=== PATIENT | female | born 1975 | race Caucasian/White ===

== ENCOUNTER → 2017-08-04 12:15 | Outpatient (CLI) | payer BC, OTHER, MEDICAID, SELFPAY ==
[2017-08-07 17:49] LABS: Clotting factor VIII 46 % normal (50-180); Thromboplastin Time 30 sec (22-34); Von Willibrand Factor Antigen 65 % (50-217)
== END ==
PROVIDERS: PCP Family Medicine
DX: N92.1 Excessive and frequent menstruation with irregular cycle (principal)
CPT/HCPCS: 85240; 85245; 85246; 85730

== ENCOUNTER 2017-08-17 11:42 | Day surgery (SDC) | payer BC, OTHER, MEDICAID, SELFPAY ==
[2017-08-12 09:19] VITALS: BMI 27.6
[2017-08-17] VITALS (16 sets, daily range): BP systolic 91–134; BP diastolic 5–78; PULSE 62–89; RESP 10–20; TEMP 36.6–37; O2SAT 95–100; BMI 26.4
--- NOTE | 2017-08-17 | PATH_ITS ---
[facility] Accession Number: [id number] . 01 Material submitted: . UTERUS AND CERVIX . 02 Diagnosis: Uterus and Cervix, Hysterectomy: Cervix with no diagnostic abnormality; negative for neoplasm. Proliferative endometrium with no diagnostic abnormality; negative for atypical hyperplasia or malignancy. Myometrium with no diagnostic abnormality; Negative for neoplasm. MRV/08/21/2017 . 02 Electronically signed: . Hany Gifford MD, PhD, Pathologist NPI- [id number] . 01 Gross description: . Received in formalin, labeled 1) uterus / cervix, is a uterus (55 grams, 3.5 cm AP, 6.6 cm SI, 3.5 cm ML). The ovaries and fallopian tubes are absent. The cervix (2.5 cm AP, 4.0 cm ML) has a vaginal cuff (up to 2.2 cm in depth, transverse os, and patent endocervical canal) lined with multiple cystic cavities (0.1 cm-0.7 cm) containing clear colorless fluid and turbid gelatinous material. The endometrium (average thickness-0.1 cm) is pulido-joaquin, smooth and flat. The myometrium (thickness-1.8 cm) is joaquin-pulido with a lacy appearance. The serosa is pale joaquin, smooth and shiny. Section code: (A1) anterior cervix; (A2) posterior cervix; (A3, A4) anterior endomyometrium; (A5, A6) posterior endomyometrium. ([id number]) /MRV . 02 Pathologist provided ICD-10: N92.1, N81.4 . 02 CPT . 958629 Performed at: [address] [facility], [place], [place] [id number] MD Carrillo Dubois MD Phone: [phone] Performed at: 02 [facility] [address] [place] [id number] MD Nitesh Han MD Phone: [phone]
[2017-08-17] MEDS: APREPITANT 40 MG CAPSULE PO (12:45)
[2017-08-17] MEDS: LACTATED RINGERS 1,000 ML 42 ML IV ×2 (12:45→14:21)
[2017-08-17] MEDS: CEFOTETAN 2 GM/50 ML PIGGYBACK IV (13:10)
--- NOTE | 2017-08-17 13:37 | SUR.OPER ---
Lithotomy on padded OR bed, head on pillow, arms secured on padded arm boards at <90 degrees abduction. Legs secured in padded yellow fins stirrups.
[2017-08-17] MEDS: BUPIVACAINE 0.5% W/ EPI (PF) 30 ML VIAL INJ (13:51)
--- NOTE | 2017-08-17 14:29 | PM.GYNOP.1 ---
Operative Date/Time/Diagnoses - Date of procedure: 08/17/17 Time of procedure: 14:29 Pre-op diagnosis: Menometrorrhagia Uterine descensus third-degree Post-op diagnosis: same Procedure: Procedures Operation Date: 08/17/17 13:00 Actual Procedures Side Surgeon p Vaginal Hysterectomy Jesus Hudson MD Indications: Menometrorrhagia Uterine descensus Surgeon: Jesus Hudson Patternmaker Plaster: Kathie Ibarra Anesthesia Type: General Operative Notes Findings: Normal appearing uterus Tubes with Hulka clips Normal ovaries Closure Type: primary Specimen(s): uterus Estimated blood loss (mL): 50 Blood products transfused: none Procedure in detail: The patient was placed supine upon the operating table and anesthetized. She was then placed in the dorsal lithotomy position and examined under anesthesia. Under anesthesia she was felt to have a highly mobile uterus of normal size with no adnexal masses. The patient was then draped para in the usual fashion. A posterior weighted retractor was set in place and the anterior lip of the cervix grabbed with two tooth tenacula. There was a circumferential injection of 0.25% Marcaine and 1 to [id number] epinephrine 10 cc. Sharp knife incision was then made circumferentially. Bladder was then pushed in a cephalad direction using a moist sponge without difficulty. The peritoneum was identified and opened and a Roddy retractor set in place. Posterior peritoneum was then opened and a large posterior weighted retractor was set in place. The uterus sacral ligaments were bilaterally clamped incised and suture ligated. These pedicles were held. Cardinal ligaments were bilaterally clamped in size and suture ligated. 1. Chromic suture was used. Uterine vessels were bilaterally clamped incised and suture ligated. Tubo-ovarian round were then bilaterally clamped incised free tied and suture ligated these pedicles were held. Each tube had a Hulka clip in the ovaries appeared to be normal. There were no bleeding points from the broad ligaments. A pursestring suture of 1. Chromic suture was then used without difficulty to close the peritoneum. Angle sutures of 1. Chromic suture were then placed with good fixation of the uterus sacral ligaments to the vaginal cuff. Vaginal cuff was then closed with interrupted 1. Chromic suture without difficulty. The urine was clear at the end of procedure. The patient was taken to the recovery room in satisfactory condition Complications: none Post-operative Condition: stable Disposition: PACU Plan for aftercare: Transfer to floor
[2017-08-17] MEDS: HYDROMORPHONE 2 MG INJ 0.25 MG IV ×4 (14:36→15:15)
[2017-08-17] MEDS: OXYCODONE/ACETAMINOPHEN 5/325 TABLET 2 TAB PO ×2 (14:45→18:41)
--- NOTE | 2017-08-17 15:10 | SUR.PHASEI ---
PT C/O 12/23 PAIN, DILAUDID AND PERCOCET GIVEN, BARE HUGGER USED HEATING PAD TO ABDOMEN, CURTAINS PULLED TO DARKEN AREA. PT CRYING- ON AND OFF SUPPORT GIVEN, DOZING IN BETWEEN CARE,
[2017-08-17] MEDS: LORazepam 2 MG/ML SYRINGE IV (15:29)
--- NOTE | 2017-08-17 15:33 | SUR.PHASEI ---
PT STIL ON AND OFF CRYING, SPOKE WITH DR AZAR, LORAZEPAN 0.25MG GIVEN. PT BETTER, NO LONGER CRYING.
--- NOTE | 2017-08-17 16:30 | SUR.PHASEII ---
late entry: pt brought up to room 221, as pt entered room and saw family she started crying again. support given, pt left in stable condition.
--- NOTE | 2017-08-17 16:31 | SUR.PHASEI ---
see final note in phase 2 as written in wrong spot.
[2017-08-17] MEDS: HYDROMORPHONE 0.5 MG INJ 1 MG IV (17:00)
[2017-08-17] MEDS: ONDANSETRON 4 MG/2 ML INJ IV (17:00)
[2017-08-17] MEDS: LACTATED RINGERS 1,000 ML 100 ML IV (17:04)
[2017-08-17 17:45] LABS: Add Manual Diff / Slide Review NO; Basophils Percent Auto 0.2 % (0-2); Hemoglobin 13.1 g/dL (12.0-16.0); Lymphocytes Percent Auto 6.3 % (25-40); Mean Corpuscular HGB Conc 34.4 % (30-36); Mean Corpuscular Hemoglobin 29.7 PG (26-34); Mean Corpuscular Volume 86.4 fL (80-100); Monocytes Percent Auto 1.3 % (3-14); Neutrophils Absolute Auto 15100 /uL (3000-5900); Neutrophils Percent Auto 92.2 % (50-75); Platelet Count 279 X10^3/uL (150-400); Red Blood Cell Count 4.39 X10^6/uL (4.0-5.2); Red Cell Distribution Width 12.6 % (11.6-14.8); White Blood Cell Count 16.4 X10^3/uL (4.5-11.0)
--- NOTE | 2017-08-17 18:43 | PC.NURSE ---
PATIENT IS ABLE TO GET SOME SLEEP AND EAT AFTER A DOSE OF IVP DILAUDID,NOW TAKING PERCOCETS.
--- NOTE | 2017-08-17 21:35 | PC.NURSE ---
PAIN MANAGED MUCH BETTER WITH OPTIC FIBRE DRAWER, UP TO BATHROOM SEVERAL TIMES WITHOUT DIFFICULTY.ABLE TO EAT DINNER WITHOUT NAUSEA.
[2017-08-17] MEDS: DOCUSATE 250 MG CAPSULE PO (21:42)
[2017-08-17] MEDS: HYDROMORPHONE PCA 6 MG/30 ML PCA.VIAL IV (23:48)
[2017-08-18] MEDS: LACTATED RINGERS 1,000 ML 100 ML IV (01:52)
[2017-08-18 01:59] VITALS: BP 94/54; PULSE 62; RESP 17; TEMP 36.6; O2SAT 100
[2017-08-18] MEDS: HYDROMORPHONE PCA 6 MG/30 ML PCA.VIAL IV ×2 (05:36→08:07)
[2017-08-18 06:12] VITALS: BP 103/62; PULSE 61; RESP 17; TEMP 36.8; O2SAT 100
--- NOTE | 2017-08-18 06:58 | PC.NURSE ---
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 GARBAGE PERSON Dilaudid in place & pt enc to use. Total 4.2mg for shift total. Denies nausea. States is 7/10 constant waves of pressure. Slept on/off. IVF infusing well to left AC PIV. Aware of plan to switch to po pain meds today, Pt states is the past post op she has had Dilaudid PO, Percocet & [place]. Voiding qs, no vaginal discharge on brief or with void.
[2017-08-18] MEDS: HYDROMORPHONE 0.5 MG INJ 1 MG IV (07:50)
[2017-08-18] MEDS: OXYCODONE/ACETAMINOPHEN 5/325 TABLET 2 TAB PO (07:51)
[2017-08-18] MEDS: DOCUSATE 250 MG CAPSULE PO (08:07)
--- NOTE | 2017-08-18 08:34 | PM.DS.1 ---
History of Present Illness Date Patient Seen: 08/18/17 Time Patient Seen: 08:34 Chief complaint: *OPB* hysterectomy 11085 Narrative: Patient is a 41-year-old with menometrorrhagia who was admitted for vaginal hysterectomy. On the 17 of August the patient underwent vaginal hysterectomy without incident.. Post delivery she did well. She remained afebrile stable vital signs and was progressively L amended ambulated. Discharge Providers Primary care physician: Kathie Ibarra DO Discharge provider: Jesus Hudson MD Summary Discharge Diagnosis: Menometrorrhagia Uterine descensus Hospital Course: Patient underwent vaginal hysterectomy without incident. Postoperatively she did well. She remained afebrile with stable vital signs and was progressively L amended and ambulated Status at Discharge Functional status at discharge: independent ambulation Time Spent with Patient Less than 30 minutes Exam Vital Signs (past 8 hours): Vital Signs - 8 hr 08/18/17 01:59 08/18/17 06:12 Temperature 97.9 F 98.3 F Pulse Rate 62 61 Respiratory Rate 17 17 Blood Pressure 94/54 L 103/62 Pulse Oximetry 100 100 Pulse Oximetry 100 Oxygen Delivery Method Room Air Narrative Exam Narrative: Abdomen is soft and nontender. There is minimal vaginal bleeding. Objective Labs Result Diagrams: 08/17/17 17:17 Labs: Laboratory Results - last 24 hr 08/17/17 17:17 WBC 16.4 H RBC 4.39 Hgb 13.1 Hct 38.0 MCV 86.4 MCH 29.7 MCHC 34.4 RDW 12.6 Plt Count 279 Neut % (Auto) 92.2 H Lymph % (Auto) 6.3 L [place] % (Auto) 1.3 L Eos % (Auto) 0.0 L Baso % (Auto) 0.2 Neut # (Auto) 61475 H Discharge Plan Discharge Plan Patient Disposition: Home, Self-Care Discharge Med Rec/Prescriptions Prescriptions: New oxycodone-acetaminophen [Percocet] 5-325 mg tablet 2 tab PO Q4-6H PRN (Reason: pain) Qty: 30 RF: 0 hydromorphone [Dilaudid] 2 mg tablet 2 mg PO Q4-6H PRN (Reason: pain) Qty: 10 RF: 0 Continue triamcinolone acetonide 0.5 % ointment 1 dave Topical BID Qty: 15 RF: 0 dextroamphetamine-amphetamine 5 mg capsule,extended release 24hr 5 mg PO QAM Qty: 30 RF: 0 Discontinued hydrocodone-acetaminophen 5-325 mg Tablet 1 tab PO Q4-6H PRN (Reason: Pain (Scale Score 1-3)) RF: 0 Follow up/Referrals: Jesus Hudson MD [Physician] - Discharge Orders: Discharge (Order); Ordered 08/18/17 Ordered By: Jesus Hudson Provider Discharge Instructions Diet: Diet as Tolerated Wound Care Report to your healthcare provider any signs of infection, such as:: chills, fever, night sweats, increased pain and unusual drainage Visit Report/Discharge Packet Stand Alone Forms: Surgery Discharge Discharge Data Primary Care Provider: Kathie Ibarra Attending Provider: Jesus Hudson Quality VTE Deep Vein Thrombosis/Pulmonary Embolism Present on Admission: No
--- NOTE | 2017-08-18 08:37 | P.DS_ITS ---
History of Present Illness Date Patient Seen: 08/18/17 Time Patient Seen: 08:34 Chief complaint: *OPB* hysterectomy [id number] Narrative: Patient is a 41-year-old with menometrorrhagia who was admitted for vaginal hysterectomy. On the 17 of August the patient underwent vaginal hysterectomy without incident.. Post delivery she did well. She remained afebrile stable vital signs and was progressively L amended ambulated. Discharge Providers Primary care physician: Kathie Ibarra DO Discharge provider: Jesus Hudson MD Summary Discharge Diagnosis: Menometrorrhagia Uterine descensus Hospital Course: Patient underwent vaginal hysterectomy without incident. Postoperatively she did well. She remained afebrile with stable vital signs and was progressively L amended and ambulated Status at Discharge Functional status at discharge: independent ambulation Time Spent with Patient Less than 30 minutes Exam Vital Signs (past 8 hours): Vital Signs - 8 hr 3 08/18/17 01:59 08/18/17 06:12 Temperature 97.9 F 98.3 F Pulse Rate 62 61 Respiratory Rate 17 17 Blood Pressure 94/54 L 103/62 Pulse Oximetry 100 100 Pulse Oximetry 100 Oxygen Delivery Method Room Air Narrative Exam Narrative: Abdomen is soft and nontender. There is minimal vaginal bleeding. Objective Labs Result Diagrams: 08/17/17 17:17 Labs: Laboratory Results - last 24 hr 08/17/17 17:17 WBC 16.4 H RBC 4.39 Hgb 13.1 Hct 38.0 MCV 86.4 MCH 29.7 MCHC 34.4 RDW 12.6 Plt Count 279 Neut % (Auto) 92.2 H Lymph % (Auto) 6.3 L [place] % (Auto) 1.3 L Eos % (Auto) 0.0 L Baso % (Auto) 0.2 Neut # (Auto) 86559 H Discharge Plan Discharge Plan Patient Disposition: Home, Self-Care Discharge Med Rec/Prescriptions Prescriptions: New oxycodone-acetaminophen [Percocet] 5-325 mg tablet 2 tab PO Q4-6H PRN (Reason: pain) Qty: 30 RF: 0 hydromorphone [Dilaudid] 2 mg tablet 2 mg PO Q4-6H PRN (Reason: pain) Qty: 10 RF: 0 Continue triamcinolone acetonide 0.5 % ointment 1 dave Topical BID Qty: 15 RF: 0 dextroamphetamine-amphetamine 5 mg capsule,extended release 24hr 5 mg PO QAM Qty: 30 RF: 0 Discontinued hydrocodone-acetaminophen 5-325 mg Tablet 1 tab PO Q4-6H PRN (Reason: Pain (Scale Score 1-3)) RF: 0 Follow up/Referrals: Jesus Hudson MD [Physician] - Discharge Orders: Discharge (Order); Ordered 08/18/17 Ordered By: Jesus Hudson Provider Discharge Instructions Diet: Diet as Tolerated Wound Care Report to your healthcare provider any signs of infection, such as:: chills, fever, night sweats, increased pain and unusual drainage Visit Report/Discharge Packet Stand Alone Forms: Surgery Discharge Discharge Data Primary Care Provider: Kathie Ibarra Attending Provider: Jesus Hudson Quality VTE Deep Vein Thrombosis/Pulmonary Embolism Present on Admission: No
[2017-08-18 09:45] VITALS: BP 102/58; PULSE 59; RESP 16; TEMP 36.7; O2SAT 100
--- NOTE | 2017-08-18 10:47 | CM.DANOTE ---
DCP/Assessment: Reviewed chart. Patient is a 41yr old female admitted to [facility] with bed for vaginal hysterectomy. PCP is Dr. Ibarra. Surgeon is Dr. Hudson. Primary payor is 1)[facility] 2) Medicaid. Met with patient explained CM/SW role. Patient alert and oriented at time of visit. Patient complaining of pain. RN notified. Patient reports that she plans to d/c home today. Patient resides with supportive family in [place]. Patient denies any d/c planning needs. P: Home today. XENIA Muniz
--- NOTE | 2017-08-18 11:33 | PC.NURSE ---
MANAGER RENEWABLE ENERGY VIAL COMPLETE AT START OF SHIFT, PT REQUESTS TO SWITCH TO ORAL ANALGESICS. C/O 8/10 PAIN. THIS APPLIED RESEARCHER MEDICATED PER EMAR WITH IV DILAUDID AND PO PERCOCET. AMBULATING IN ROOM INDEPENDENTLY. DR. GARCIA IN FOR ROUNDING. D/C TO HOME ORDERED. IV REMOVED. PT C/OF PAIN AT 1100. TOO EARLY FOR PO ANALGESICS. MOTHER HAS TAKEN SCRIPTS TO PHARMACY TO FILL AWAITING RETURN. MSG LEFT WITH DR. RADHA SALAZAR EFRA FOR VTO FOR EARLY ADMINISTRATION OF PERCOCET OR PO DILAUDID PT HAS NOT IV ACCESS AT THIS TIME. MOTHER ARRIVED FROM PHARMACY WITH PO DILAUDID AND PO PERCOCET. PT TOOK 2 MG PO DILAUDID WITNESSED BY THIS APPLIED RESEARCHER. PT AMBULATED OUT OF HOSPITAL ESCORTED WITH THIS APPLIED RESEARCHER AT [facility] AT APPROX 1120. PT LEFT IN STABLE CONDITION WITH ALL PERSONAL BELONGINGS.
== END 2017-08-18 11:20 | disposition home or self-care (01) ==
LOC: OR 11:43 → AC 16:14
PROVIDERS: PCP Family Medicine
PROC: (CPT 58260; principal; 2017-08-17 13:00)
DX: N92.1 Excessive and frequent menstruation with irregular cycle (principal); F17.210 Nicotine dependence, cigarettes, uncomplicated; N81.4 Uterovaginal prolapse, unspecified
CPT/HCPCS: 58260; 85025; 88305; J0131; J0330; J1100; J1170; J2060; J2250; J2405; J2704; J8501

== ENCOUNTER → 2018-09-29 11:18 | Outpatient (CLI) | payer BC, OTHER, MEDICAID, SELFPAY ==
[2018-09-09 13:26] VITALS: BMI 26.4
--- NOTE | 2018-09-29 11:21 | DI.RAD.S_ITS ---
PROCEDURE: XR KNEE LT 3V INDICATIONS: left knee pain TECHNIQUE: 3 views of the knee were acquired. COMPARISON: [facility], , KNEE 3V RIGHT, 09/23/2016, 11:56. FINDINGS: Bones: No fractures or dislocations. No suspicious bony lesions. No patella subluxation is seen. Soft tissues: Small to moderate amount of joint effusion is seen. No suspicious soft tissue calcifications. IMPRESSION: No left knee fracture or dislocation. Small to moderate amount of joint effusion. Dictated by: Tevin Javier M.D. on 09/29/2018 at 13:08 Approved by: Tevin Javier M.D. on 09/29/2018 at 13:08
== END ==
PROVIDERS: PCP Family Medicine; Visit Provider Family Medicine
DX: M25.562 Pain in left knee (principal); M25.462 Effusion, left knee
CPT/HCPCS: 73562

== ENCOUNTER → 2018-12-22 12:17 | Outpatient (CLI) | payer BC, OTHER, MEDICAID, SELFPAY ==
[2018-09-09 13:26] VITALS: BMI 26.4
[2018-12-22 16:48] LABS: Luteinizing Hormone 8.72 mIU/mL
== END ==
PROVIDERS: Family Provider Family Medicine; PCP Family Medicine; Visit Provider Nurse Practitioner Family
DX: R23.2 Flushing (principal)
CPT/HCPCS: 36415; 83001; 83002

== ENCOUNTER 2019-02-02 11:27 | Emergency (ER) | payer BC, OTHER, MEDICAID, SELFPAY ==
[2018-09-09 13:26] VITALS: BMI 26.4
[2019-02-02 11:33] VITALS: BP 145/88; PULSE 97; RESP 16; TEMP 36.8; O2SAT 99; BMI 28.9
--- NOTE | 2019-02-02 11:33 | DI.RAD.S_ITS ---
PROCEDURE: XR WRIST RT MIN 3V INDICATIONS: pain TECHNIQUE: 3 views of the wrist were acquired. COMPARISON: None. FINDINGS: Bones: No displaced fractures or dislocations. No suspicious bony lesions. Soft tissues: No suspicious soft tissue calcifications. IMPRESSION: No acute osseous abnormality of the right wrist. Dictated by: Enrico Reagan M.D. on 02/02/2019 at 10:55 Approved by: Enrico Reagan M.D. on 02/02/2019 at 10:56
--- NOTE | 2019-02-02 11:38 | ED_ITS ---
HPI - GI Bleed General Chief complaint: Extremity Injury, Upper Stated complaint: Hurt Right Wrist Time Seen by Provider: 02/02/19 11:33 Source: patient Mode of arrival: Ambulatory Limitations: no limitations History of Present Illness HPI Narrative: 43-year-old female here for evaluation of right wrist pain. She states that yesterday she was taking clothes out of a washing machine when she had a sudden pain in the right wrist. She does not remember hitting it on anything. She did not fall. She did feel a ?snap? this happened last evening. Her right elbow is unremarkable. Her right hand is unremarkable. The swelling is improved since last evening however she does have pain with movement. Related Data Previous Rx's Medication Instructions Recorded ketoconazole 2 % topical cream 1 applictn TOP BID #30 gram 12/24/18 dextroamphetamine-amphetamine 10 10 mg PO DAILY #30 tab 02/01/19 mg tablet dextroamphetamine-amphetamine ER 20 mg PO DAILY #30 cap 02/01/19 20 mg 24hr capsule,extend release escitalopram oxalate 20 mg tablet 30 mg PO DAILY #45 tab 02/01/19 Allergies Allergy/AdvReac Type Severity Reaction Status Date / Time bee venom protein (honey bee) Allergy Severe Difficulty Verified 02/02/19 11:33 Breathing, edema Penicillins [PENICILLINS] Allergy Severe Vomiting Verified 02/02/19 11:33 and rash ketorolac [From TORADOL] Allergy Intermediate ABDOMINAL Verified 02/02/19 11:33 PAIN doxycycline AdvReac Severe Abdominal Verified 02/02/19 11:33 Pain Review of Systems Constitutional Constitutional: Denies fever(s) Musculoskeletal Musculoskeletal: Denies tingling Comments: Right wrist pain Integumentary/Breasts Skin/Breast: Denies rash Neurologic Neurologic: Denies tingling Hematologic/Lymphatic Hematologic/Lymphatic: Denies easy bleeding and Denies easy bruising Patient History Medical History Cervical dystonia (Chronic) Chronic left shoulder pain (Chronic 12/05/15) History of heavy periods (Chronic) Kidney stone (Chronic ~2013) Menorrhagia (Chronic) Painful menstrual flow (Chronic) Tobacco use (Chronic 06/16/16) Trigeminal neuralgia (Chronic) UTI (urinary tract infection) (Chronic ~2013) Family History (Reviewed 02/02/19 @ 11:39 by RASHEL Cramer Father Age: 68 Colon cancer Mother Fibromyalgia History of bladder surgery Grandmother Bladder cancer Social History marital status: number of children: 1 household members: family, children and other education level: high school occupational status: employed Smoking Status: Current every day smoker alcohol intake: current substance use type: does not use Substance Use Type: does not use Exam Initial Vital Signs Initial Vital Signs: Vital Signs Temperature 98.2 F 02/02/19 11:33 Pulse Rate 97 H 02/02/19 11:33 Respiratory Rate 16 02/02/19 11:33 Blood Pressure 145/88 H 02/02/19 11:33 Pulse Oximetry 99 02/02/19 11:33 Const General: cooperative and comfortable Cardio Pulses: radial pulses present on the right Skin Lesions: no lesions Rashes: no rashes Neuro Sensory Exam: no sensory deficits noted Extrem Other: Right elbow unremarkable, right hand unremarkable, right thumb unremarkable, no snuffbox tenderness, has tenderness to palpation throughout the right wrist. Procedures Orthopedic Splinting/Casting Injury #1: Side: right Upper Extremity Injury Location: wrist Upper Extremity Immobilizer: wrist splint Post splinting neuro exam: intact Post splinting vascular exam: intact Placed by: Nursing Course Orders Ordered: ED Orders 02/02/19 11:33 XR wrist RT min 3V Stat Vital Signs Vital signs: Vital Signs - 8 hr 02/02/19 11:33 02/02/19 11:51 Temperature 98.2 F Pulse Rate 97 H Pulse Rate [Right Radial] 90 Respiratory Rate 16 Blood Pressure 145/88 H Pulse Oximetry 99 MDM - GI Bleed Imaging Data Xray wrist: Radiologist's impression: [address] [address] XRay Report Signed Patient: Aggie Cartwright LMR#: [id number] : 1975Acct:[id number] Age/Sex: 43 / FDate of Service: 02/02/19 Loc: ED Accession Number: [id number] Procedure: XR wrist RT min 3V Ordering Provider: Washington Hyde D.O. PROCEDURE: XR WRIST RT MIN 3V INDICATIONS: pain TECHNIQUE: 3 views of the wrist were acquired. COMPARISON: None. FINDINGS: Bones: No displaced fractures or dislocations. No suspicious bony lesions. Soft tissues: No suspicious soft tissue calcifications. IMPRESSION: No acute osseous abnormality of the right wrist. Dictated by: Enrico Reagan M.D. on 02/02/2019 at 10:55 Approved by: Enrico Reagan M.D. on 02/02/2019 at 10:56 [facility] Narrative Medical decision making narrative: No fractures on the x-ray, is neurovascularly intact, will placed in a removable right wrist splint. We did discuss rice. Discussed return precautions. She expressed understanding and agreement with plan Discharge Plan Departure Patient Disposition: Home Clinical Impression: Sprain of wrist, right Qualifiers: Encounter type: initial encounter Qualified Code(s): S63.501A - Unspecified sprain of right wrist, initial encounter Instructions: DI for Wrist Sprain, How To Perform RICE (Rest, Ice, Compress, Elevate) Activity Restrictions/Additional Instructions: Use the wrist splint as needed. Contact your primary provider for a follow-up. Return to the emergency department for any new symptoms Prescriptions: No Action dextroamphetamine-amphetamine [Adderall] 10 mg tablet 10 mg PO DAILY Qty: 30 RF: 0 escitalopram oxalate [Lexapro] 20 mg tablet 30 mg PO DAILY Qty: 45 RF: 2 dextroamphetamine-amphetamine [Adderall XR] 20 mg capsule,extended release 24hr 20 mg PO DAILY Qty: 30 RF: 0 ketoconazole 2 % cream 1 applictn TOP BID Qty: 30 RF: 0 Referrals: Kathie Ibarra DO [Primary Care Provider] -
[2019-02-02 11:51] VITALS: PULSE 90
== END 2019-02-02 12:15 | disposition home or self-care (01) ==
PROVIDERS: Emergency Provider Emergency Medicine; Family Provider Family Medicine; PCP Family Medicine
DX: S63.501A Unspecified sprain of right wrist, initial encounter (principal); Y93.E2 Activity, laundry
CPT/HCPCS: 29260; 73110; 99282; 99283

== ENCOUNTER 2019-05-22 07:57 | Emergency (ER) | payer BC, OTHER, MEDICAID, SELFPAY ==
[2018-09-09 13:26] VITALS: BMI 26.4
[2019-05-22 08:11] VITALS: BP 131/70; PULSE 104; RESP 18; TEMP 37.2; O2SAT 100
--- NOTE | 2019-05-22 08:33 | ED_ITS ---
HPI - URI/Sore Throat General Chief Complaint: Upper Respiratory Symptoms Stated Complaint: vomiting/ cough/ sore throat, fever Time Seen by Provider: 05/22/19 08:19 Source: patient Mode of arrival: Ambulatory Limitations: no limitations History of Present Illness HPI Narrative: 43-year-old woman without significant medical history with 3 days of upper respiratory symptoms consisting of runny nose, scratchy throat, low- grade fevers, nonproductive dry cough and today had 3 episodes of emesis. She believes it is related to the persistent postnasal drip that she has. Her daughter had similar symptoms last week. She is not complaining of dyspnea, chest pain, edema, rashes Related Data Previous Rx's Medication Instructions Recorded ketoconazole 2 % topical cream 1 applictn TOP BID #30 gram 12/24/18 dextroamphetamine-amphetamine 10 10 mg PO DAILY #10 tab 04/22/19 mg tablet dextroamphetamine-amphetamine ER 20 mg PO DAILY #30 cap 04/22/19 20 mg 24hr capsule,extend release bupropion HCl 300 mg 24 hr tablet, 300 mg PO QAM #30 tab 05/17/19 extended release ondansetron 4 mg PO Q8H PRN #10 each 05/22/19 Allergies Allergy/AdvReac Type Severity Reaction Status Date / Time bee venom protein (honey bee) Allergy Severe Difficulty Verified 02/02/19 11:33 Breathing, edema Penicillins [PENICILLINS] Allergy Severe Vomiting Verified 02/02/19 11:33 and rash ketorolac [From TORADOL] Allergy Intermediate ABDOMINAL Verified 02/02/19 11:33 PAIN doxycycline AdvReac Severe Abdominal Verified 02/02/19 11:33 Pain Review of Systems Review of Systems Narrative: All systems reviewed and are unremarkable except as noted in HPI and below Patient History Medical History Cervical dystonia (Chronic) Chronic left shoulder pain (Chronic 12/05/15) History of heavy periods (Chronic) Kidney stone (Chronic ~2013) Menorrhagia (Chronic) Painful menstrual flow (Chronic) Tobacco use (Chronic 06/16/16) Trigeminal neuralgia (Chronic) UTI (urinary tract infection) (Chronic ~2013) Surgical History Anesthesia (Inactive) History of endometrial ablation (Resolved ~2015) History of lithotripsy (Resolved) History of lumpectomy (Resolved ~1991) S/P nasal surgery (Resolved) Status post tubal ligation (Resolved ~2015) Family History Father Age: 68 Colon cancer Mother Fibromyalgia History of bladder surgery Grandmother Bladder cancer Social History marital status: number of children: 1 household members: family, children and other education level: high school occupational status: employed Smoking Status: Current every day smoker alcohol intake: current substance use type: does not use Smoking Status: Current every day smoker Substance Use Type: does not use Exam Narrative Exam Narrative: General: Healthy appearing, in no acute distress. Able to give a complete and coherent history. Well-nourished well-developed HEENT: Moist mucous membranes, normal sclera with reactive pupils, mildly retracted tympanic membranes bilaterally, mild posterior pharyngeal erythema without exudate Neck: No JVD, supple, no cervical adenopathy Respiratory: Lungs are clear to auscultation, with minor scattered wheezing in upper lung moore wheezing no rales no rhonchi. Full and symmetrical air movement Cardiac: Regular rate and rhythm no murmurs no bruits Abdomen: Soft nontender good bowel tones, no flank pain Skin: Warm and dry, no rashes Neurologic: Grossly neurologically intact with no obvious asymmetries or abnormalities Extremities: No trauma, well perfused Psych: Cooperative, appropriate insight and affect Initial Vital Signs Initial Vital Signs: Vital Signs Temperature 98.9 F 05/22/19 08:11 Pulse Rate 104 H 05/22/19 08:11 Respiratory Rate 18 05/22/19 08:11 Blood Pressure 131/70 05/22/19 08:11 Pulse Oximetry 100 05/22/19 08:11 Course Orders Ordered: Discontinued Medications Ondansetron HCl (Zofran Odt) 4 mg SL NOW ONE Stop: 05/22/19 08:34 Vital Signs Vital signs: Vital Signs - 8 hr 05/22/19 08:11 Temperature 98.9 F Pulse Rate 104 H Respiratory Rate 18 Blood Pressure 131/70 Pulse Oximetry 100 [facility] - URI/Sore Throat Medical Records Attestation: I reviewed the patient's medical records. MDM Narrative Medical decision making narrative: Symptoms all consistent with mild viral upper respiratory infection no signs of sepsis or impending respiratory failure. Symptomatic treatment. Discharge Plan Departure Patient Disposition: Home Clinical Impression: Viral infection Instructions: DI for Viral Syndrome Activity Restrictions/Additional Instructions: Thank you for coming in today You have a viral syndrome and are going to get better over the next couple of days. I have given you a prescription for Zofran to help with nausea. It was electronically sent to [facility] for you. While at the drugstore I would suggest picking up some Sudafed to help with the nasal stuffiness as well as Robitussin DM to help with your cough. Ibuprofen can help with the aches and pains. Please make sure that you stay well hydrated, wash her hands and disinfected surfaces in your house will to prevent spreading this to the your family members. If you find that you are getting worse with increased work of breathing, feeling like you are short of breath, fevers that are not controlled persist it is perfectly okay to return to the emergency room and I am happy to re-evaluate Prescriptions: New ondansetron 4 mg film 4 mg PO Q8H PRN (Reason: nausea and vomiting) Qty: 10 RF: 0 No Action dextroamphetamine-amphetamine [Adderall XR] 20 mg capsule,extended release 24hr 20 mg PO DAILY Qty: 30 RF: 0 dextroamphetamine-amphetamine [Adderall] 10 mg tablet 10 mg PO DAILY Qty: 10 RF: 0 ketoconazole 2 % cream 1 applictn TOP BID Qty: 30 RF: 0 bupropion HCl [Wellbutrin XL] 300 mg tablet extended release 24 hr 300 mg PO QAM Qty: 30 RF: 3 Referrals: Kathie Ibarra DO [Primary Care Provider] -
[2019-05-22] MEDS: ONDANSETRON 4 MG ODT SL (08:49)
== END 2019-05-22 09:17 | disposition home or self-care (01) ==
PROVIDERS: Emergency Provider Emergency Medicine; Family Provider Family Medicine; PCP Family Medicine
DX: B34.9 Viral infection, unspecified (principal); R05 Cough; R11.10 Vomiting, unspecified
CPT/HCPCS: 99283

== ENCOUNTER → 2019-05-24 12:27 | Outpatient (CLI) | payer BC, OTHER, MEDICAID, SELFPAY ==
[2018-09-09 13:26] VITALS: BMI 26.4
[2019-05-24 13:21] LABS: Influenza A - CEPHEID Flu A NEGATIVE (NEGATIVE); Influenza B - CEPHEID Flu B NEGATIVE (NEGATIVE)
== END ==
PROVIDERS: Family Provider Family Medicine; PCP Family Medicine; Visit Provider Family Medicine
DX: B34.9 Viral infection, unspecified (principal)
CPT/HCPCS: 87502

== ENCOUNTER → 2019-05-30 09:46 | Outpatient (CLI) | payer BC, OTHER, MEDICAID, SELFPAY ==
[2018-09-09 13:26] VITALS: BMI 26.4
[2019-05-30 13:07] LABS: Adenovirus Not Detected (Not Detect); Bordetella pertussis Not Detected (Not Detect); Chlamydophila pneumoniae Not Detected (Not Detect); Coronavirus 229E Not Detected (Not Detect); Coronavirus HKU1 Not Detected (Not Detect); Coronavirus NL 63 Not Detected (Not Detect); Coronavirus OC43 Not Detected (Not Detect); Human Metapneumovirus Not Detected (Not Detect); Human Rhinovirus/Enterovirus Detected (Not Detect); Influenza A Not Detected (Not Detect); Influenza B Not Detected (Not Detect); Mycoplasma pneumoniae Not Detected (Not Detect); Parainfluenza Virus 1 Not Detected (Not Detect); Parainfluenza Virus 2 Not Detected (Not Detect); Parainfluenza Virus 3 Not Detected (Not Detect); Parainfluenza Virus 4 Not Detected (Not Detect); Respiratory Syncytial Virus Not Detected (Not Detect)
[2019-06-03 22:28] LABS: COVID19 Sendout Not Detected (Not Detected)
== END ==
PROVIDERS: Family Provider Family Medicine; PCP Family Medicine; Visit Provider Family Medicine
DX: R05 Cough (principal)
CPT/HCPCS: 87633; 87635

== ENCOUNTER → 2019-06-09 12:01 | Outpatient (CLI) | payer BC, OTHER, MEDICAID, SELFPAY ==
[2018-09-09 13:26] VITALS: BMI 26.4
--- NOTE | 2019-06-09 12:03 | DI.RAD.S_ITS ---
PROCEDURE: XR CHEST 2V INDICATIONS: cough, fever TECHNIQUE: 2 views of the chest were acquired. COMPARISON: None. FINDINGS: Surgical changes and devices: None. Lungs and pleura: Lungs are clear. No pleural effusions or pneumothorax. Mediastinum: Mediastinal contours are normal. Heart size is normal. Bones and chest wall: No suspicious bony abnormalities. Soft tissues appear unremarkable. IMPRESSION: No acute cardiopulmonary disease. Dictated by: Nikole Parkinson M.D. on 06/09/2019 at 13:16 Approved by: Nikole Parkinson M.D. on 06/09/2019 at 13:17
== END ==
PROVIDERS: Family Provider Family Medicine; PCP Family Medicine; Referring Provider Family Medicine; Visit Provider Family Medicine
DX: R05 Cough (principal); R50.9 Fever, unspecified
CPT/HCPCS: 71046

== ENCOUNTER 2019-08-26 23:14 | Emergency (ER) | payer BC, SELFPAY ==
[2018-09-09 13:26] VITALS: BMI 26.4
[2019-08-26 23:22] VITALS: BP 139/80; PULSE 108; RESP 18; TEMP 37.4; O2SAT 98; BMI 27.4
[2019-08-26] MEDS: LIDOCAINE 2% W/EPI INJ 3 ML INJ (23:48)
[2019-08-27] MEDS: OXYCODONE/APAP 5/325 PREPACK 1 BOTTLE MISC (00:03)
[2019-08-27] MEDS: IBUPROFEN 400 MG TABLET PO (00:03)
[2019-08-27] MEDS: OXYCODONE/ACETAMINOPHEN 5/325 TABLET 1 TAB PO (00:03)
--- NOTE | 2019-08-27 00:14 | ED_ITS ---
HPI - Dental/Oral General Chief complaint: Dental/Oral Stated complaint: toothache/severe pain Time Seen by Provider: 08/26/19 23:25 Source: patient Mode of arrival: Family Vehicle History of Present Illness HPI Narrative: 43-year-old woman presents with severe right-sided dental pain. She felt something changed in her mouth does not describe some popping cracking or significant trauma and then experienced severe right-sided pain. It is worse with talking or moving her mouth and anything touching the tooth including air. She is unable to eat or drink because of the pain. Location: Tooth # (30) Onset (ago): hour(s) Duration: constant Severity: severe Severity scale (1-10): >10 Relieving factors: nothing Exacerbating factors: chewing, cold, heat, drinking fluids and swallowing Related Data Previous Rx's Medication Instructions Recorded ketoconazole 2 % topical cream 1 applictn TOP BID #30 gram 12/24/18 bupropion HCl 300 mg 24 hr tablet, 300 mg PO QAM #30 tab 05/17/19 extended release benzonatate 200 mg capsule 200 mg PO TID PRN #30 cap 05/23/19 albuterol sulfate 90 mcg/actuation 2 puff INHALATION Q6H PRN #6.7 gram 05/24/19 aerosol inhaler ondansetron 4 mg disintegrating 4 mg PO Q8H PRN #20 tab 05/30/19 tablet dextroamphetamine-amphetamine 10 10 mg PO DAILY #30 tab 08/23/19 mg tablet dextroamphetamine-amphetamine ER 20 mg PO DAILY #30 cap 08/23/19 20 mg 24hr capsule,extend release oxycodone-acetaminophen 1 tab PO Q6H PRN #10 tab 08/27/19 Allergies Allergy/AdvReac Type Severity Reaction Status Date / Time bee venom protein (honey bee) Allergy Severe Difficulty Verified 02/02/19 11:33 Breathing, edema Penicillins [PENICILLINS] Allergy Severe Vomiting Verified 02/02/19 11:33 and rash ketorolac [From TORADOL] Allergy Intermediate ABDOMINAL Verified 02/02/19 11:33 PAIN doxycycline AdvReac Severe Abdominal Verified 02/02/19 11:33 Pain Review of Systems Review of Systems Narrative: Pertinent positive and negative findings as per HPI Remainder of review of systems is otherwise unremarkable for Constitutional: Fevers, chills, weakness ENT: No sore throat, neck pain, ear pain CV: Chest pain, palpitations, dyspnea on exertion Respiratory: Cough, wheeze, dyspnea GI: Nausea, vomiting, diarrhea, change in bowel habits, black or bloody stools Patient History Medical History Cervical dystonia (Chronic) Chronic left shoulder pain (Chronic 12/05/15) History of heavy periods (Chronic) Kidney stone (Chronic ~2013) Menorrhagia (Chronic) Painful menstrual flow (Chronic) Tobacco use (Chronic 06/16/16) Trigeminal neuralgia (Chronic) UTI (urinary tract infection) (Chronic ~2013) Surgical History Anesthesia (Inactive) History of endometrial ablation (Resolved ~2015) History of lithotripsy (Resolved) History of lumpectomy (Resolved ~1991) S/P nasal surgery (Resolved) Status post tubal ligation (Resolved ~2015) Family History Father Age: 68 Colon cancer Mother Fibromyalgia History of bladder surgery Grandmother Bladder cancer Social History marital status: number of children: 1 household members: family, children and other education level: high school occupational status: employed Smoking Status: Current every day smoker alcohol intake: current substance use type: does not use Smoking Status: Current every day smoker Substance Use Type: does not use Exam Narrative Exam Narrative: General: Alert appropriate in no acute distress EENT: Multiple dental caries. Tooth 20. 9 is extracted. Tooth number 30 with half the crown missing and exposed dental nerve. No abscess or severe periodontal disease Respiratory: Able to speak in full sentences, no obvious respiratory distress Skin: No obvious rashes, warm and dry Neurologic: Grossly intact no obvious asymmetries or abnormalities Psych, appropriate insight and affect, cooperative Initial Vital Signs Initial Vital Signs: Vital Signs Temperature 99.3 F 08/26/19 23:22 Pulse Rate 108 H 08/26/19 23:22 Respiratory Rate 18 08/26/19 23:22 Blood Pressure 139/80 08/26/19 23:22 Pulse Oximetry 98 08/26/19 23:22 Course Orders Ordered: Discontinued Medications Ibuprofen (Advil) 400 mg PO NOW ONE Stop: 08/26/19 23:53 Last Admin: 08/27/19 00:03 Dose: 400 mg Documented by: MANUEL Lidocaine HCl (Xylocaine 2%) 20 ml INJ INTRA-OP ONE Stop: 08/26/19 23:39 Last Admin: 08/26/19 23:48 Dose: Not Given Documented by: NIESHA Lidocaine/Epinephrine (Xylocaine 2% W/Epi) 3 ml INJ INTRA-OP ONE Stop: 08/26/19 23:47 Last Admin: 08/26/19 23:48 Dose: 3 ml Documented by: NIESHA Oxycodone/Acetaminophen (Percocet 5/325) 1 tab PO NOW ONE Stop: 08/26/19 23:53 Last Admin: 08/27/19 00:03 Dose: 1 tab Documented by: MANUEL Oxycodone/Acetaminophen (Endocet 5/325 Prepack) 1 bottle MISC SEEINSTR ONE Stop: 08/26/19 23:58 Last Admin: 08/27/19 00:03 Dose: 1 bottle Documented by: MANUEL Vital Signs Vital signs: Vital Signs - 8 hr 08/26/19 23:22 Temperature 99.3 F Pulse Rate 108 H Respiratory Rate 18 Blood Pressure 139/80 Pulse Oximetry 98 MDM - Dental/Oral Medical Records Attestation: I reviewed the patient's medical records. [facility] Narrative Medical decision making narrative: Exposed tooth root number 30. Severe pain. Dental paste was applied to cover the exposed root. Dental periosteal nerve block with 3 cc of 2% lidocaine was used for pain control. Patient is a improved and safe for home discharge Discharge Plan Departure Patient Disposition: Home Clinical Impression: Fracture of tooth Qualifiers: Encounter type: initial encounter Fracture type: closed Qualified Code(s): S02.5XXA - Fracture of tooth (traumatic), initial encounter for closed fracture Instructions: DI for Dental Pain Activity Restrictions/Additional Instructions: Thank you for coming in today It looks like you broke you 1st molar on the bottom right side. The root is exposed and that is the source of your severe pain. I have tried to cover this, but you will need to be very gentle with it to keep it in place. Tomorrow, you need to go to the drug store and look for DENTAL WAX. You can use this to at least cover the nerve root so the pain is not quite so severe. Using 400 mg of ibuprofen (2 [id number] pills) and 1 Tylenol every 6 hours can be very helpful in controlling pain. For severe pain rather than Tylenol you can use 1 Percocet with the 400 mg of ibuprofen. A prescription for Percocet has been electronically transmitted to [facility] for you You will need to get in to see a dentist for definitive care. I wish you well Prescriptions: New oxycodone-acetaminophen 5-325 mg tablet 1 tab PO Q6H PRN (Reason: pain) Qty: 10 RF: 0 No Action ondansetron 4 mg tablet,disintegrating 4 mg PO Q8H PRN (Reason: nausea and vomiting) Qty: 20 RF: 0 albuterol sulfate 90 mcg/actuation HFA aerosol inhaler 2 puff INHALATION Q6H PRN (Reason: shortness of breath or wheezing) Qty: 6.7 RF: 0 ketoconazole 2 % cream 1 applictn TOP BID Qty: 30 RF: 0 bupropion HCl [Wellbutrin XL] 300 mg tablet extended release 24 hr 300 mg PO QAM Qty: 30 RF: 3 benzonatate 200 mg capsule 200 mg PO TID PRN (Reason: cough) Qty: 30 RF: 0 dextroamphetamine-amphetamine [Adderall] 10 mg tablet 10 mg PO DAILY Qty: 30 RF: 0 dextroamphetamine-amphetamine [Adderall XR] 20 mg capsule,extended release 24hr 20 mg PO DAILY Qty: 30 RF: 0 Referrals: Kathie Ibarra DO [Primary Care Provider] -
[2019-08-27 00:34] VITALS: BP 128/78; PULSE 90; RESP 16; O2SAT 97
== END 2019-08-27 00:34 | disposition home or self-care (01) ==
PROVIDERS: Emergency Provider Emergency Medicine; Family Provider Family Medicine; PCP Family Medicine
DX: S02.5XXA Fracture of tooth (traumatic), initial encounter for closed fracture (principal)
CPT/HCPCS: 99283

== ENCOUNTER → 2019-10-13 11:45 | Outpatient (CLI) | payer BC, OTHER, SELFPAY ==
[2018-09-09 13:26] VITALS: BMI 26.4
[2019-10-13 13:28] LABS: Add Manual Diff / Slide Review NO; Basophils Absolute Auto 100 /uL (0-100); Basophils Percent Auto 0.8 % (0-2); Eosinophils Absolute Auto 200 /uL (0-450); Eosinophils Percent Auto 1.9 % (2-4); Hematocrit 41.4 % (36-46); Hemoglobin 14.2 g/dL (12.0-16.0); Lymphocytes Absolute Auto 3100 /uL (1100-4500); Lymphocytes Percent Auto 37.5 % (25-40); Mean Corpuscular HGB Conc 34.2 % (30-36); Mean Corpuscular Hemoglobin 29.7 PG (26-34); Mean Corpuscular Volume 86.7 fL (80-100); Monocytes Absolute Auto 500 /uL (0-900); Monocytes Percent Auto 5.6 % (3-14); Neutrophils Absolute Auto 4400 /uL (1500-7000); Neutrophils Percent Auto 54.2 % (50-75); Platelet Count 351 X10^3/uL (150-400); Red Blood Cell Count 4.77 X10^6/uL (4.0-5.2); Red Cell Distribution Width 12.8 % (11.6-14.8); White Blood Cell Count 8.2 X10^3/uL (4.5-11.0)
[2019-10-13 13:56] LABS: Alanine Aminotransferase 13 IU/L (<35); Albumin 4.4 g/dL (3.5-5.0); Alkaline Phosphatase 77 U/L (38-126); Aspartate Aminotransferase 20 IU/L (14-36); BUN Creatinine Ratio 8.9 (6-22); Bilirubin Total 0.4 mg/dL (0.2-1.3); Blood Urea Nitrogen 5 mg/dL (7-17); Calcium 9.1 mg/dL (8.4-10.2); Carbon Dioxide 28 mmol/L (22-32); Chloride 102 mmol/L (98-107); Estimated Glomerular Filt Rate > 60.0 mL/min (>60); Globulin 2.2 g/dL (1.7-4.1); Glucose 113 mg/dL (70-100); HEMOLYSIS < 15 (0-50); Potassium 4.4 mmol/L (3.4-5.1); Sodium 138 mmol/L (137-145); Total Protein 6.6 g/dL (6.3-8.2)
[2019-10-13 14:23] LABS: TSH w/ Reflex to FT4 1.78 uIU/mL (0.47-4.68)
== END ==
PROVIDERS: Family Provider Family Medicine; PCP Family Medicine; Referring Provider Family Medicine; Visit Provider Family Medicine
DX: R61 Generalized hyperhidrosis (principal)
CPT/HCPCS: 36415; 80053; 84443; 85025

== ENCOUNTER 2019-11-08 12:22 | Emergency (ER) | payer BC, OTHER, SELFPAY ==
[2018-09-09 13:26] VITALS: BMI 26.4
[2019-11-08 12:29] VITALS: BP 146/74; PULSE 92; RESP 16; TEMP 37; O2SAT 98; BMI 28.2
--- NOTE | 2019-11-08 12:31 | DI.RAD.S_ITS ---
PROCEDURE: XR SHOULDER RT MIN 2V INDICATIONS: shoulder injury TECHNIQUE: 2 views of the shoulder were acquired. COMPARISON: [facility], CR, XR CHEST 2V, 06/09/2019, 11:57. FINDINGS: Bones: No fractures or dislocations. No suspicious bony lesions. Visualized ribs appear intact. Soft tissues: Calcific tendinopathy is seen. The visualized lung demonstrates an unremarkable appearance. IMPRESSION: Calcific tendinopathy is seen, without an acute plain film abnormality seen. If it would be helpful for clinical management decision making, please consider a dedicated, scheduled shoulder MRI for further evaluation (assuming that there is no contraindication). If there is strong clinical concern for a labral abnormality, this should be performed according to the arthrogram protocol. Dictated by: Zion Gonzalez M.D. on 11/08/2019 at 12:02 Approved by: Zion Gonzalez M.D. on 11/08/2019 at 12:03
[2019-11-08] MEDS: CYCLOBENZAPRINE 10 MG TABLET PO (16:00)
[2019-11-08] MEDS: LIDOCAINE PATCH 1 EACH ADH..PATCH TOP (16:00)
[2019-11-08 16:09] VITALS: BP 138/78; PULSE 88; RESP 16; O2SAT 97
--- NOTE | 2019-11-08 17:07 | ED_ITS ---
HPI - Extremity Injury (Upper) <Ana Luisa Nathan, MEDICARE COMPLIANCE AUDITOR-BC - Last Filed: 11/08/19 18:57> General Chief Complaint: Extremity Injury, Upper Stated Complaint: RIGHT SHOULDER PAIN INJURY Time Seen by Provider: 11/08/19 15:07 Source: patient Mode of arrival: Ambulatory Limitations: no limitations History of Present Illness HPI narrative: The patient is a 44-year-old female current smoker with remote history of right shoulder pain who presents with a chief complaint of right shoulder pain. She was practicing [employer] a few days ago, has had a pain in her right shoulder when she had a punching bag. She took 2 ibuprofen for this today, but states that she cannot tolerate doses of NSAIDs as they make her vomit and she has severe stomach pain. She states that she has remote history of a partial tear of the rotator cuff on that side, without happened several years ago. She denies any other injury, states that she has full range of motion of her right wrist, hand and elbow. Related Data Previous Rx's Medication Instructions Recorded ketoconazole 2 % topical cream 1 applictn TOP BID #30 gram 12/24/18 albuterol sulfate 90 mcg/actuation 2 puff INHALATION Q6H PRN #6.7 gram 05/24/19 aerosol inhaler ondansetron 4 mg disintegrating 4 mg PO Q8H PRN #20 tab 10/14/19 tablet epinephrine 0.3 mg/0.3 mL 0.3 mg IM Q5-15M PRN #2 each 10/20/19 injection, auto-injector dextroamphetamine-amphetamine ER 30 mg PO DAILY #30 cap 11/03/19 30 mg 24hr capsule,extend release cyclobenzaprine 10 mg PO TID PRN #20 tab 11/08/19 lidocaine 1 patch TOP DAILY PRN #15 each 11/08/19 prednisone 40 mg PO DAILY 5 Days #10 tab 11/08/19 Allergies Allergy/AdvReac Type Severity Reaction Status Date / Time bee venom protein (honey bee) Allergy Severe Difficulty Verified 11/08/19 12:29 Breathing, edema Penicillins [PENICILLINS] Allergy Severe Vomiting Verified 11/08/19 12:29 and rash ketorolac [From TORADOL] Allergy Intermediate ABDOMINAL Verified 11/08/19 12:29 PAIN doxycycline AdvReac Severe Abdominal Verified 11/08/19 12:29 Pain Review of Systems <SIA Hernandez - Last Filed: 11/08/19 18:57> Review of Systems Narrative: GENERAL: Denies chills, fatigue, malaise, fever, sweats. HEENT: Denies sinus pain, ear pain, sore throat, difficulty swallowing, dizziness. RESPIRATORY: Denies dyspnea, cough, wheezing, hemoptysis, sputum. CARDIOVASCULAR: Denies chest pain, palpitations, orthopnea, edema, GASTROINTESTINAL: Denies nausea, vomiting, abdominal pain, diarrhea, constipation, melena. : Denies dysuria, frequency, incontinence, hematuria, urinary retention. MUSCULOSKELETAL: See HPI SKIN: Denies rash, skin lesions, or other NEUROLOGIC: Denies weakness, headache, numbness, change in speech, confusion, seizures, incoordination. PSYCHIATRIC: No concerning psychosocial issues. 12 point review of systems is negative except for those stated above Patient History <SIA Hernandez - Last Filed: 11/08/19 18:57> Medical History Cervical dystonia (Chronic) Chronic left shoulder pain (Chronic 12/05/15) History of heavy periods (Chronic) Kidney stone (Chronic ~2013) Menopausal symptom (Acute) Menorrhagia (Chronic) Painful menstrual flow (Chronic) Tobacco use (Chronic 06/16/16) Trigeminal neuralgia (Chronic) UTI (urinary tract infection) (Chronic ~2013) Surgical History Anesthesia (Inactive) History of endometrial ablation (Resolved ~2015) History of lithotripsy (Resolved) History of lumpectomy (Resolved ~1991) S/P nasal surgery (Resolved) Status post tubal ligation (Resolved ~2015) Family History Father Age: 68 Colon cancer Mother Fibromyalgia History of bladder surgery Grandmother Bladder cancer Social History marital status: number of children: 1 household members: family, children and other education level: high school occupational status: employed Smoking Status: Current every day smoker alcohol intake: current substance use type: does not use Smoking Status: Current every day smoker alcohol intake frequency: holidays/special occasions only Substance Use Type: does not use Exam <SIA Hernandez - Last Filed: 11/08/19 18:57> Narrative Exam Narrative: GENERAL: This is a well-nourished, well-developed patient, appears uncomfortable HEAD: Atraumatic. Normocephalic. No temporal or scalp tenderness. EYES: Pupils equal round and reactive. Extraocular motions intact. No scleral icterus. No injection or drainage. ENT: Nose without bleeding, purulent drainage or septal hematoma. Wearing a mask Airway patent. NECK: Trachea midline. No JVD or lymphadenopathy. Supple, nontender, no meningeal signs. CARDIOVASCULAR: Regular rate and rhythm RESPIRATORY: No cough. No increased respiratory effort. No accessory muscle use. EXTREMITIES: Pain to palpation generalized right shoulder, decreased range of motion all moore, negative in hand test. Positive right radial pulse. Able to make a fist, flex and extend right hand right wrist, no pain to snuffbox palpation right wrist. Able to fully flex and extend right elbow. No pain to palpation right elbow. BACK: Nontender without deformity or crepitance. No flank tenderness. NEURO: AOx3. SKIN: No rash or erythema on visible skin Initial Vital Signs Initial Vital Signs: Vital Signs Temperature 98.6 F 11/08/19 12:29 Pulse Rate 92 H 11/08/19 12:29 Respiratory Rate 16 11/08/19 12:29 Blood Pressure 146/74 H 11/08/19 12:29 Pulse Oximetry 98 11/08/19 12:29 <Melissa Dixon MD - Last Filed: 11/08/19 18:58> Initial Vital Signs Initial Vital Signs: Vital Signs Temperature 98.6 F 11/08/19 12:29 Pulse Rate 92 H 11/08/19 12:29 Respiratory Rate 16 11/08/19 12:29 Blood Pressure 146/74 H 11/08/19 12:29 Pulse Oximetry 98 11/08/19 12:29 Scores <SIA Hernandez - Last Filed: 11/08/19 18:57> GCS [place] coma scale eye opening: Spontaneous [place] coma scale verbal response: Orientated [place] coma scale motor response: Obey commands [place] coma scale total score: 15 Course <SIA Hernandez - Last Filed: 11/08/19 18:57> Orders Ordered: ED Orders 11/08/19 12:31 XR shoulder RT min 2V Stat Discontinued Medications Cyclobenzaprine HCl (Flexeril) 10 mg PO NOW ONE Stop: 11/08/19 15:31 Last Admin: 11/08/19 16:00 Dose: 10 mg Documented by: MANUEL Lidocaine (Lidoderm) 1 each TOP NOW ONE Stop: 11/08/19 15:31 Last Admin: 11/08/19 16:00 Dose: 1 each Documented by: MANUEL Vital Signs Vital signs: Vital Signs - 8 hr 11/08/19 12:29 11/08/19 16:09 Temperature 98.6 F Pulse Rate 92 H 88 Respiratory Rate 16 16 Blood Pressure 146/74 H 138/78 Pulse Oximetry 98 97 <Melissa Dixon MD - Last Filed: 11/08/19 18:58> Orders Ordered: ED Orders 11/08/19 12:31 XR shoulder RT min 2V Stat Discontinued Medications Cyclobenzaprine HCl (Flexeril) 10 mg PO NOW ONE Stop: 11/08/19 15:31 Last Admin: 11/08/19 16:00 Dose: 10 mg Documented by: MANUEL Lidocaine (Lidoderm) 1 each TOP NOW ONE Stop: 11/08/19 15:31 Last Admin: 11/08/19 16:00 Dose: 1 each Documented by: MANUEL Vital Signs Vital signs: Vital Signs - 8 hr 11/08/19 12:29 11/08/19 16:09 Temperature 98.6 F Pulse Rate 92 H 88 Respiratory Rate 16 16 Blood Pressure 146/74 H 138/78 Pulse Oximetry 98 97 MDM - Extremity Injury (Upper) <SIA Hernandez - Last Filed: 11/08/19 18:57> Imaging Data Extremity x-ray #1: Radiologist's Impression: [address] [place] [id number] XRay Report Signed Patient: Aggie Cartwright LMR#: [id number] : 1975Acct:[id number] Age/Sex: 44 / FDate of Service: 11/08/19 Loc: ED Accession Number: [id number] Procedure: XR shoulder RT min 2V Ordering Provider: Melissa Dixon MD PROCEDURE: XR SHOULDER RT MIN 2V INDICATIONS: shoulder injury TECHNIQUE: 2 views of the shoulder were acquired. COMPARISON: [facility], CR, XR CHEST 2V, 06/09/2019, 11:57. FINDINGS: Bones: No fractures or dislocations. No suspicious bony lesions. Visualized ribs appear intact. Soft tissues: Calcific tendinopathy is seen. The visualized lung demonstrates an unremarkable appearance. IMPRESSION: Calcific tendinopathy is seen, without an acute plain film abnormality seen. If it would be helpful for clinical management decision making, please consider a dedicated, scheduled shoulder MRI for further evaluation (assuming that there is no contraindication). If there is strong clinical concern for a labral abnormality, this should be performed according to the arthrogram protocol. Dictated by: Zion Gonzalez M.D. on 11/08/2019 at 12:02 Approved by: Zion Gonzalez M.D. on 11/08/2019 at 12:03 [facility] Narrative Medical decision making narrative: The patient is a 44-year-old female who presents with a chief complaint of right shoulder pain after hitting a punching bag several days ago. She has a negative x-ray for any acute fracture, though sounded to have some calcific tendinitis. I discussed the use of NSAIDs for this, the patient cannot tolerate them. Thus we elected use prednisone instead. Also left upper trial muscle relaxers and lidocaine patch. She does have decreased range of motion, 9 courage to follow-up with her PCP in the next few days. She may need further imaging and/or physical therapy. Patient did request a sling, I discussed that that increases her chance of frozen shoulder syndrome so elected to hold off on that at this point time. Discussed come back to the ER for any acute concerns. Patient has no questions or concerns upon discharge and states understanding of return precautions as well as follow-up care. Discharge Plan Departure Patient Disposition: Home Clinical Impression: Acute pain of right shoulder, Calcific tendonitis of right shoulder Discharge Date/Time: 11/08/19 16:09 Instructions: DI for Shoulder Tendinopathy, How To Perform RICE (Rest, Ice, Compress, Elevate), DI for Shoulder Pain Activity Restrictions/Additional Instructions: Thank you for trusting us with your care today. As I discussed, your x-ray shows no acute fractures, does show the possibility of calcific tendinitis. For this I have placed you on muscle relaxers and steroids. Please follow-up with primary care provider in the next few days. As discussed, you may need physical therapy and/or further imaging. Please come back to emergency department for any acute concerns Prescriptions: New cyclobenzaprine 10 mg tablet 10 mg PO TID PRN (Reason: muscle spasm) Qty: 20 RF: 0 lidocaine 5 % adhesive patch,medicated 1 patch TOP DAILY PRN (Reason: pain) Qty: 15 RF: 0 prednisone 20 mg tablet 40 mg PO DAILY 5 Days Qty: 10 RF: 0 No Action albuterol sulfate 90 mcg/actuation HFA aerosol inhaler 2 puff INHALATION Q6H PRN (Reason: shortness of breath or wheezing) Qty: 6.7 RF: 0 dextroamphetamine-amphetamine 30 mg capsule,extended release 24hr 30 mg PO DAILY Qty: 30 RF: 0 ketoconazole 2 % cream 1 applictn TOP BID Qty: 30 RF: 0 ondansetron 4 mg tablet,disintegrating 4 mg PO Q8H PRN (Reason: nausea and vomiting) Qty: 20 RF: 2 epinephrine [EpiPen 2-Jason] 0.3 mg/0.3 mL auto-injector 0.3 mg IM Q5-15M PRN (Reason: anaphylaxis) Qty: 2 RF: 0 Referrals: Kathie Ibarra DO [Primary Care Provider] - <Melissa Dixon MD - Last Filed: 11/08/19 18:58> [facility] I was immediately available in the department for consultation throughout this patient's visit. I agree with documentation as above. Melissa Dixon MD
== END 2019-11-08 16:09 | disposition home or self-care (01) ==
PROVIDERS: Emergency Provider Nurse Practitioner Family; Family Provider Family Medicine; PCP Family Medicine
DX: M75.31 Calcific tendinitis of right shoulder (principal)
CPT/HCPCS: 73030; 99283

== ENCOUNTER → 2019-11-24 15:43 | Outpatient (CLI) | payer BC, OTHER, SELFPAY ==
[2018-09-09 13:26] VITALS: BMI 26.4
[2019-11-25 14:10] LABS: Specimen Label MYRIAD KIT
== END ==
PROVIDERS: Family Provider Family Medicine; PCP Family Medicine; Referring Provider Obstetrics & Gynecology; Visit Provider Obstetrics & Gynecology
DX: Z80.3 Family history of malignant neoplasm of breast (principal); Z80.41 Family history of malignant neoplasm of ovary; Z80.42 Family history of malignant neoplasm of prostate
CPT/HCPCS: 36415

== ENCOUNTER → 2019-12-16 10:13 | Outpatient (CLI) | payer BC, OTHER, MEDICAID, SELFPAY ==
[2018-09-09 13:26] VITALS: BMI 26.4
== END ==
PROVIDERS: Family Provider Family Medicine; PCP Family Medicine; Referring Provider Obstetrics & Gynecology; Visit Provider Obstetrics & Gynecology
DX: R11.15 Cyclical vomiting syndrome unrelated to migraine (principal)
CPT/HCPCS: 36415; 83001

== ENCOUNTER → 2020-02-02 10:56 | Outpatient (CLI) | payer BC, OTHER, MEDICAID, SELFPAY ==
[2018-09-09 13:26] VITALS: BMI 26.4
[2020-02-02 18:37] LABS: Urine Chlamydia NOT DETECTED; Urine N gonorrhoeae NOT DETECTED
== END ==
PROVIDERS: Family Provider Family Medicine; PCP Family Medicine; Referring Provider Family Medicine; Visit Provider Family Medicine
DX: N89.8 Other specified noninflammatory disorders of vagina (principal)
CPT/HCPCS: 87491; 87591

== ENCOUNTER 2020-10-09 09:28 | Emergency (ER) | payer BC, OTHER, MEDICAID, SELFPAY ==
[2018-09-09 13:26] VITALS: BMI 26.4
[2020-10-09 09:42] VITALS: BP 121/76; PULSE 86; RESP 13; TEMP 36.8; O2SAT 98; BMI 27.4
--- NOTE | 2020-10-09 09:58 | ED.URI ---
HPI - URI/Sore Throat General Chief Complaint: Upper Respiratory Symptoms Stated Complaint: WHITE SPOTS ON THROAT/CONGESTION/FEVER Time Seen by Provider: 10/09/20 09:33 Source: patient Mode of arrival: Ambulatory Limitations: no limitations History of Present Illness HPI Narrative: 45-year-old female smoker presents with a chief complaint of various upper respiratory symptoms including runny nose, sore throat, trouble swallowing, cough and diarrhea for the past 3 4 days. She has had a fever as high as 100.1 F. She is able to eat and drink. She denies any difficulty breathing. She traveled a few weeks ago to [place] but does not think she has been exposed to anybody with known COVID. Related Data Previous Rx's Medication Instructions Recorded ketoconazole 2 % topical cream 1 applictn TOP BID #30 gram 12/24/18 albuterol sulfate 90 mcg/actuation 2 puff INHALATION Q6H PRN #6.7 gram 05/24/19 aerosol inhaler epinephrine 0.3 mg/0.3 mL 0.3 mg IM Q5-15M PRN #2 each 10/20/19 injection, auto-injector (EpiPen 2-Jason) cyclobenzaprine 10 mg tablet 10 mg PO TID PRN #20 tab 11/08/19 lidocaine 5 % topical patch 1 patch TOP DAILY PRN #15 each 11/08/19 ondansetron 4 mg disintegrating 4 mg PO Q8H PRN #20 tab 04/16/20 tablet alprazolam 0.25 mg tablet 0.25 mg PO DAILY PRN #7 tab 09/03/20 dextroamphetamine-amphetamine ER 30 mg PO DAILY #30 cap 09/11/20 30 mg 24hr capsule,extend release Allergies Allergy/AdvReac Type Severity Reaction Status Date / Time bee venom protein (honey bee) Allergy Severe Difficulty Verified 10/09/20 09:52 Breathing, edema Penicillins [PENICILLINS] Allergy Severe Vomiting Verified 10/09/20 09:52 and rash ketorolac [From TORADOL] Allergy Intermediate ABDOMINAL Verified 10/09/20 09:52 PAIN doxycycline AdvReac Severe Abdominal Verified 10/09/20 09:52 Pain Review of Systems Review of Systems Narrative: GENERAL: Denies chills, fatigue, malaise, fever, sweats. HEENT: See HPI RESPIRATORY: See HPI CARDIOVASCULAR: Denies chest pain, palpitations, orthopnea, edema, GASTROINTESTINAL: Denies nausea, vomiting, abdominal pain, diarrhea, constipation, melena. : Denies dysuria, frequency, incontinence, hematuria, urinary retention. MUSCULOSKELETAL: denies weakness, joint pain, or bony pain SKIN: Denies rash, skin lesions, or other NEUROLOGIC: Denies weakness, headache, numbness, change in speech, confusion, seizures, incoordination. PSYCHIATRIC: No concerning psychosocial issues. 12 point review of systems is negative except for those stated above Patient History Medical History (Updated 10/09/20 @ 10:40 by Fede Jorge DO) Cervical dystonia Chronic left shoulder pain (12/05/15) History of heavy periods Kidney stone (~2013) Menopausal symptom Menorrhagia Painful menstrual flow Tobacco use (06/16/16) Trigeminal neuralgia UTI (urinary tract infection) (~2013) Surgical History Anesthesia History of endometrial ablation (~2015) History of lithotripsy History of lumpectomy (~1991) S/P nasal surgery Status post tubal ligation (~2015) Family History Father Age: 69 Colon cancer Mother Fibromyalgia History of bladder surgery Grandmother Bladder cancer Social History marital status: number of children: 1 household members: family, children and other education level: high school occupational status: employed Smoking Status: Current every day smoker alcohol intake: current substance use type: does not use Smoking Status: Current every day smoker alcohol intake frequency: holidays/special occasions only Substance Use Type: does not use Exam Narrative Exam Narrative: GEN: AOx3 and in mild distress EYES: Pupils are equal, round, and reactive to light and accommodation. Extraoccular muscles are intact bilaterally. There is no subconjunctival hemorrhage or exudate. ENT: Clear nasal drainage bilaterally with clear posterior pharyngeal drainage, no tonsillar swelling, erythema or exudate. Bilateral tympanic membranes are clear, without effusion, redness or bulging CHEST: Lungs are clear to auscultation bilaterally and free of wheezes, rales, or rhonchi. Heart rate is regular rhythm, there are no murmurs, clicks, rubs, or gallops. There is no chest wall tenderness. ABD: Abdomen is soft and nontender. There is no guarding or rebound. Bowel sounds are normal in all 4 quadrants. There is no mass or organomegaly. EXT: Full painless ROM of all extremities with no loss of sensation or strength. SKIN: Warm, pink, and dry. No erythema or rash Initial Vital Signs Initial Vital Signs: Vital Signs Temperature 98.3 F 10/09/20 09:42 Pulse Rate 86 10/09/20 09:42 Respiratory Rate 13 10/09/20 09:42 Blood Pressure 121/76 10/09/20 09:42 Pulse Oximetry 98 10/09/20 09:42 Course Orders Ordered: ED Orders 10/09/20 10:19 COVID19 -Nasal swab/Pre-Proc Stat Vital Signs Vital signs: Vital Signs - 8 hr 10/09/20 09:42 Temperature 98.3 F Pulse Rate 86 Respiratory Rate 13 Blood Pressure 121/76 Pulse Oximetry 98 MDM - URI/Sore Throat Lab Data Labs: Lab Results 10/09/20 Range/Units 10:19 SARS-CoV-2 (PCR) Negative (Negative) Point of Care Testing Rapid Strep A Negative MDM Narrative Medical decision making narrative: Patient is resting comfortably in shows no sign of sepsis. She is tolerating oral hydration. She is in no respiratory distress. Strep is negative, COVID is negative. There is no indication for significant lab workup or imaging. This history and physical is most consistent with a viral upper respiratory infection. Return precautions given and questions answered to her apparent satisfaction Discharge Plan Departure Patient Disposition: Home Clinical Impression: Upper respiratory virus Instructions: DI for Viral Upper Respiratory Infection -- Adult Activity Restrictions/Additional Instructions: *You have been diagnosed with [viral upper respiratory infection. Swab for strep was negative, COVID swab was negative] *What to do: *Please continue to take your regular medications as directed. * please consider [id number] cough and cold medications that include an antihistamine to dry the secretions. *Please follow up with your primary care provider in 2-3 days, call for an appointment. Let them know you were seen in the Emergency Department and that we ask that you be seen in follow up. We will electronically transmit a record of today's note if your PCP is in our system *If you do not have a primary care provider please contact the [facility] Resource line at [phone]. They will ask some questions about your medical history and help get you set up with a doctor in the community. *Return to Emergency Department if you should have any new, worsening or concerning symptoms, such as [fever greater than 101 F, shaking chills, worsening pain, persistent vomiting or other bothersome symptoms] Prescriptions: No Action albuterol sulfate 90 mcg/actuation HFA aerosol inhaler 2 puff INHALATION Q6H PRN (Reason: shortness of breath or wheezing) Qty: 6.7 RF: 0 dextroamphetamine-amphetamine 30 mg capsule,extended release 24hr 30 mg PO DAILY Qty: 30 RF: 0 ketoconazole 2 % cream 1 applictn TOP BID Qty: 30 RF: 0 epinephrine [EpiPen 2-Jason] 0.3 mg/0.3 mL auto-injector 0.3 mg IM Q5-15M PRN (Reason: anaphylaxis) Qty: 2 RF: 0 ondansetron 4 mg tablet,disintegrating 4 mg PO Q8H PRN (Reason: nausea and vomiting) Qty: 20 RF: 5 alprazolam 0.25 mg tablet 0.25 mg PO DAILY PRN (Reason: flying) Qty: 7 RF: 0 cyclobenzaprine 10 mg tablet 10 mg PO TID PRN (Reason: muscle spasm) Qty: 20 RF: 0 lidocaine 5 % adhesive patch,medicated 1 patch TOP DAILY PRN (Reason: pain) Qty: 15 RF: 0 Referrals: Kathie Ibarra DO [Primary Care Provider] -
[2020-10-09 10:48] LABS: COVID19 -Nasal RAPID Negative (Negative)
[2020-10-09 11:09] VITALS: BP 114/72; PULSE 78; O2SAT 98
== END 2020-10-09 11:10 | disposition home or self-care (01) ==
PROVIDERS: Emergency Provider Emergency Medicine; Family Provider Family Medicine; PCP Family Medicine
DX: J06.9 Acute upper respiratory infection, unspecified (principal); R50.9 Fever, unspecified; Z20.822 Contact with and (suspected) exposure to COVID-19
CPT/HCPCS: 87635; 87880; 99282; C9803

== ENCOUNTER 2021-01-20 10:22 | Emergency (ER) | payer BC, OTHER, MEDICAID, SELFPAY ==
[2018-09-09 13:26] VITALS: BMI 26.4
[2021-01-20 11:17] VITALS: BP 118/84; PULSE 55; RESP 19; TEMP 37; O2SAT 99; BMI 27.1
--- NOTE | 2021-01-20 12:43 | ED.DENTAL ---
HPI - Dental/Oral General Chief complaint: Dental/Oral Stated complaint: Poss infection post emergent tooth extraction 01/15 Time Seen by Provider: 01/20/21 12:29 Source: patient Mode of arrival: Family Vehicle Limitations: no limitations History of Present Illness HPI Narrative: Patient is a 45-year-old female with all emergent right lower molar removed last week. She said it was broken and required emergency extraction. She has since had increasing drawn bone pain. Unable to eat or drink anything. She is able to open her mouth. She says that she has had multiple teeth pulled she has had dry socket in the does not feel like dry socket. No fever or chills Related Data Previous Rx's Medication Instructions Recorded ketoconazole 2 % topical cream 1 applictn TOP BID #30 gram 12/24/18 albuterol sulfate 90 mcg/actuation 2 puff INHALATION Q6H PRN #6.7 gram 05/24/19 aerosol inhaler epinephrine 0.3 mg/0.3 mL 0.3 mg IM Q5-15M PRN #2 each 10/20/19 injection, auto-injector (EpiPen 2-Jason) cyclobenzaprine 10 mg tablet 10 mg PO TID PRN #20 tab 11/08/19 lidocaine 5 % topical patch 1 patch TOP DAILY PRN #15 each 11/08/19 ondansetron 4 mg disintegrating 4 mg PO Q8H PRN #20 tab 04/16/20 tablet alprazolam 0.25 mg tablet 0.25 mg PO DAILY PRN #7 tab 09/03/20 dextroamphetamine-amphetamine ER 30 mg PO DAILY #30 cap 12/07/20 30 mg 24hr capsule,extend release clindamycin HCl 300 mg capsule 300 mg PO Q6H #28 cap 01/20/21 Allergies Allergy/AdvReac Type Severity Reaction Status Date / Time bee venom protein (honey bee) Allergy Severe Difficulty Verified 01/20/21 11:21 Breathing, edema Penicillins [PENICILLINS] Allergy Severe Vomiting Verified 01/20/21 11:21 and rash ketorolac [From TORADOL] Allergy Intermediate ABDOMINAL Verified 01/20/21 11:21 PAIN doxycycline AdvReac Severe Abdominal Verified 01/20/21 11:21 Pain Review of Systems Review of Systems Narrative: GENERAL: Denies chills,fever HEENT: See HPI RESPIRATORY: Denies dyspnea, cough, wheezing CARDIOVASCULAR: Denies chest pain, palpitations GASTROINTESTINAL: Denies nausea, vomiting MUSCULOSKELETAL: Denies extremity pain, injury SKIN: No rash, no laceration, no pruritus NEUROLOGIC: Denies weakness, dizziness, headache, numbness 8 point review of systems is negative except for those stated above and HPI Patient History Medical History (Updated 01/20/21 @ 12:49 by Esperanza Fields DO) Cervical dystonia Chronic left shoulder pain (12/05/15) History of heavy periods Kidney stone (~2013) Menopausal symptom Menorrhagia Painful menstrual flow Tobacco use (06/16/16) Trigeminal neuralgia UTI (urinary tract infection) (~2013) Surgical History Anesthesia History of endometrial ablation (~2015) History of lithotripsy History of lumpectomy (~1991) S/P nasal surgery Status post tubal ligation (~2015) Family History Father Age: 70 Colon cancer Mother Fibromyalgia History of bladder surgery Grandmother Bladder cancer Social History marital status: number of children: 1 household members: family, children and other education level: high school occupational status: employed Smoking Status: Current every day smoker alcohol intake: current substance use type: does not use Smoking Status: Current every day smoker alcohol intake frequency: holidays/special occasions only Substance Use Type: does not use Exam Initial Vital Signs Initial Vital Signs: Vital Signs Temperature 98.6 F 01/20/21 11:17 Pulse Rate 55 L 01/20/21 11:17 Respiratory Rate 19 01/20/21 11:17 Blood Pressure 118/84 01/20/21 11:17 Pulse Oximetry 99 01/20/21 11:17 GENERAL: Well-appearing, well-nourished and in no acute distress. MOUTH: Right lower back molar removed his sutures seen socket is covered. No significant erythema no dental abscess no trismus CARDIOVASCULAR: peripheral pulses in tact, cap refill <2 sec RESPIRATORY: No respiratory distress, speaks in full sentences without difficulty EXTREMITIES: Normal range of motion, no clubbing or edema. Neurovascularly intact NEUROLOGICAL: Cranial nerves II through XII grossly intact. Normal gait and speech. SKIN: Warm, dry, no petechiae, no rashes or lesions. Course Vital Signs Vital signs: Vital Signs - 8 hr 01/20/21 11:17 Temperature 98.6 F Pulse Rate 55 L Respiratory Rate 19 Blood Pressure 118/84 Pulse Oximetry 99 Discharge Plan Departure Patient Disposition: Home Clinical Impression: Pain, dental Instructions: DI for Dental Pain Activity Restrictions/Additional Instructions: *You have been diagnosed with dental pain *What to do: At this time recommend increasing fluids, water, Gatorade trying smoothies as well. Please follow did test instructions. *Continue to take medications as directed Clindamycin 300 mg every 6 hours for 7 days--> SENT TO [facility] *Follow up with your primary care provider in 2-3 days *Return to ER if you should have increasing pain, increasing swelling or redness or any new, worsening or concerning symptoms Prescriptions: New clindamycin HCl 300 mg capsule 300 mg PO Q6H Qty: 28 RF: 0 No Action albuterol sulfate 90 mcg/actuation HFA aerosol inhaler 2 puff INHALATION Q6H PRN (Reason: shortness of breath or wheezing) Qty: 6.7 RF: 0 dextroamphetamine-amphetamine 30 mg capsule,extended release 24hr 30 mg PO DAILY Qty: 30 RF: 0 ketoconazole 2 % cream 1 applictn TOP BID Qty: 30 RF: 0 epinephrine [EpiPen 2-Jason] 0.3 mg/0.3 mL auto-injector 0.3 mg IM Q5-15M PRN (Reason: anaphylaxis) Qty: 2 RF: 0 ondansetron 4 mg tablet,disintegrating 4 mg PO Q8H PRN (Reason: nausea and vomiting) Qty: 20 RF: 5 alprazolam 0.25 mg tablet 0.25 mg PO DAILY PRN (Reason: flying) Qty: 7 RF: 0 cyclobenzaprine 10 mg tablet 10 mg PO TID PRN (Reason: muscle spasm) Qty: 20 RF: 0 lidocaine 5 % adhesive patch,medicated 1 patch TOP DAILY PRN (Reason: pain) Qty: 15 RF: 0 Referrals: Kathie Ibarra DO [Primary Care Provider] -
== END 2021-01-20 13:05 | disposition home or self-care (01) ==
PROVIDERS: Emergency Provider Emergency Medicine; Family Provider Family Medicine; PCP Family Medicine
DX: K08.89 Other specified disorders of teeth and supporting structures (principal)
CPT/HCPCS: 99281

== ENCOUNTER 2021-02-19 16:51 | Emergency (ER) | payer BC, OTHER, MEDICAID, SELFPAY ==
[2018-09-09 13:26] VITALS: BMI 26.4
[2021-02-19 17:16] VITALS: BP 153/80; PULSE 86; RESP 18; TEMP 36.4; O2SAT 100
--- NOTE | 2021-02-19 17:21 | DI.RAD.S_ITS ---
PROCEDURE: XR CHEST 2V INDICATIONS: cough/congestion TECHNIQUE: 2 views of the chest were acquired. COMPARISON: [facility], CR, XR CHEST 2V, 06/09/2019, 11:57. FINDINGS: Surgical changes and devices: None. Lungs and pleura: Lungs are clear. No pleural effusions or pneumothorax. Mediastinum: Mediastinal contours are normal. Heart size is normal. Bones and chest wall: No suspicious bony abnormalities. Soft tissues appear unremarkable. IMPRESSION: No acute cardiopulmonary pathology. Dictated by: Tevin Javier M.D. on 02/19/2021 at 17:31 Approved by: Tevin Javier M.D. on 02/19/2021 at 17:31
[2021-02-19 18:09] LABS: COVID19 -Nasal RAPID Negative (Negative)
--- NOTE | 2021-02-19 19:52 | ED_ITS ---
HPI - General Adult General Chief complaint: Upper Respiratory Symptoms Stated complaint: DEEP COUGH, CHEST TIGHNESS, HEADACHE, NO TASTE Time Seen by Provider: 02/19/21 19:47 Source: patient Mode of arrival: Ambulatory History of Present Illness HPI narrative: Patient is a 45-year-old female. Is vaccinated against COVID however is here for evaluation of cough and chest tightness and headache and change in taste. Symptoms have been going on for the past day or so. 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 Related Data Previous Rx's Medication Instructions Recorded ketoconazole 2 % topical cream 1 applictn TOP BID #30 gram 12/24/18 albuterol sulfate 90 mcg/actuation 2 puff INHALATION Q6H PRN #6.7 gram 05/24/19 aerosol inhaler epinephrine 0.3 mg/0.3 mL 0.3 mg (0.3 mL) IM Q5-15M PRN #2 10/20/19 injection, auto-injector (EpiPen each 2-Jason) cyclobenzaprine 10 mg tablet 10 mg PO TID PRN #20 tab 11/08/19 lidocaine 5 % topical patch 1 patch TOP DAILY PRN #15 each 11/08/19 ondansetron 4 mg disintegrating 4 mg PO Q8H PRN #20 tab 04/16/20 tablet alprazolam 0.25 mg tablet 0.25 mg PO DAILY PRN #7 tab 09/03/20 dextroamphetamine-amphetamine ER 30 mg PO DAILY #30 cap 12/07/20 30 mg 24hr capsule,extend release clindamycin HCl 300 mg capsule 300 mg PO Q6H #28 cap 01/20/21 Allergies Allergy/AdvReac Type Severity Reaction Status Date / Time bee venom protein (honey bee) Allergy Severe Difficulty Verified 01/20/21 11:21 Breathing, edema Penicillins [PENICILLINS] Allergy Severe Vomiting Verified 01/20/21 11:21 and rash ketorolac [From TORADOL] Allergy Intermediate ABDOMINAL Verified 01/20/21 11:21 PAIN doxycycline AdvReac Severe Abdominal Verified 01/20/21 11:21 Pain Review of Systems Constitutional Constitutional: Reports headache(s) ENT Ears, Nose, Mouth, and Throat: Reports system reviewed and no additional complaints, except as documented and Reports headache(s) Cardiovascular Cardiovascular: Reports system reviewed and no additional complaints, except as documented Respiratory Respiratory: Reports as per HPI and Reports system reviewed and no additional complaints, except as documented Gastrointestinal Gastrointestinal: Reports as per HPI and Reports system reviewed and no additional complaints, except as documented Integumentary/Breasts Skin/Breast: Reports system reviewed and no additional complaints, except as documented Neurologic Neurologic: Reports system reviewed and no additional complaints, except as documented and Reports headache(s) Hematologic/Lymphatic On Anticoagulants: No Patient History Medical History Cervical dystonia Chronic left shoulder pain (12/05/15) History of heavy periods Kidney stone (~2013) Menopausal symptom Menorrhagia Painful menstrual flow Tobacco use (06/16/16) Trigeminal neuralgia UTI (urinary tract infection) (~2013) Surgical History Anesthesia History of endometrial ablation (~2015) History of lithotripsy History of lumpectomy (~1991) S/P nasal surgery Status post tubal ligation (~2015) Family History Father Age: 70 Colon cancer Mother Fibromyalgia History of bladder surgery Grandmother Bladder cancer Social History marital status: number of children: 1 household members: family, children and other education level: high school occupational status: employed Smoking Status: Current every day smoker alcohol intake: current substance use type: does not use Smoking Status: Current every day smoker alcohol intake frequency: holidays/special occasions only Substance Use Type: does not use Exam Initial Vital Signs Initial Vital Signs: Vital Signs Temperature 97.6 F 02/19/21 17:16 Pulse Rate 86 02/19/21 17:16 Respiratory Rate 18 02/19/21 17:16 Blood Pressure 153/80 H 02/19/21 17:16 Pulse Oximetry 100 02/19/21 17:16 Const General: cooperative, healthy appearing, comfortable and well developed Limitations: mental status not altered HENMT Head: normal to inspection and normocephalic Mouth: oral mucosae normal and moist mucous membranes Teeth and gingiva: dentition normal Throat: no uvular edema and other (Bilateral tonsillar exudates) Resp Effort & Inspection: normal respiratory effort Auscultation: clear to auscultation bilaterally Cardio Rate: regular rate Rhythm: regular rhythm Skin General: no rashes or lesions noted Neuro General: patient alert, patient awake, patient oriented x3 and moves all extremities Extrem General: No edema Psych Appearance: grossly normal and well kempt Course Orders Ordered: ED Orders 02/19/21 17:21 XR chest 2V Stat 02/19/21 17:24 COVID19 -Nasal swab/Pre-Proc Stat Vital Signs Vital signs: Vital Signs - 8 hr 02/19/21 20:26 Pulse Rate 80 Respiratory Rate 18 Blood Pressure 123/78 Pulse Oximetry 98 Medical Decision Making Lab Data Labs: Lab Results 02/19/21 Range/Units 17:24 SARS-CoV-2 (PCR) Negative (Negative) Point of Care Testing Rapid Strep A Negative Point of care testing: Point of Care Testing Rapid Strep A Negative Imaging Data Chest x-ray: Radiologist's Impression: [address] [address] XRay Report Signed Patient: Aggie Cartwright MR#: [id number] : 1975 Acct:[id number] Age/Sex: 45 / F Date of Service: 02/19/21 Loc: ED Accession Number: [id number] ?? Procedure: XR chest 2V Ordering Provider: Ana Luisa Moyer D.O. PROCEDURE:? XR CHEST 2V ? INDICATIONS:? cough/congestion ? TECHNIQUE:? 2 views of the chest were acquired.? ? COMPARISON:? [facility], , XR CHEST 2V, 06/09/2019, 11:57. ? FINDINGS:? ? Surgical changes and devices:? None.? ? Lungs and pleura:? Lungs are clear.? No pleural effusions or pneumothorax.? ? Mediastinum:? Mediastinal contours are normal.? Heart size is normal.? ? Bones and chest wall:? No suspicious bony abnormalities.? Soft tissues appear unremarkable.? ? IMPRESSION:? No acute cardiopulmonary pathology. ? ? Dictated by: Tevin Javier M.D. on 02/19/2021 at 17:31 ? ? Approved by: Tevin Javier M.D. on 02/19/2021 at 17:31? MDM Narrative Medical decision making narrative: COVID is negative, chest x-ray is unremarkable, rapid strep is negative. No indication for antibiotics. I do suspect a viral syndrome however no specific etiology noted with the workup here in the ER. We will hold on further workup for now. I did discuss all this with the patient. Discussed return precautions. She expressed understanding and agreement. Discharge Plan Departure Patient Disposition: Home Clinical Impression: Upper respiratory infection Instructions: DI for Viral Upper Respiratory Infection -- Adult Activity Restrictions/Additional Instructions: Your COVID test, chest x-ray and strep test were all negative. There is no indication for any antibiotics. Continue to take all of your medications as directed. Tylenol for any fevers or body aches. You can consider a antihistamine such as Claritin or Kaycee or Zyrtec. You can purchase these [id number]. The generic versions of these medications as appropriate. Contact your primary doctor for a follow-up. Return to the emergency department for any new or worsening symptoms Prescriptions: No Action albuterol sulfate 90 mcg/actuation HFA aerosol inhaler 2 puff INHALATION Q6H PRN (Reason: shortness of breath or wheezing) Qty: 6.7 0RF dextroamphetamine-amphetamine 30 mg capsule,extended release 24hr 30 mg PO DAILY Qty: 30 0RF ketoconazole 2 % cream 1 applictn TOP BID Qty: 30 0RF Rx Instructions: Apply to lesion and all areas within 1 inch of lesion BID for 2 to 3 weeks or until resolved. epinephrine [EpiPen 2-Jason] 0.3 mg/0.3 mL auto-injector 0.3 mg IM Q5-15M PRN (Reason: anaphylaxis) Qty: 2 0RF Rx Instructions: do not exceed 3 doses per episode. Must be seen in ER after injection ondansetron 4 mg tablet,disintegrating 4 mg PO Q8H PRN (Reason: nausea and vomiting) Qty: 20 5RF alprazolam 0.25 mg tablet 0.25 mg PO DAILY PRN (Reason: flying) Qty: 7 0RF clindamycin HCl 300 mg capsule 300 mg PO Q6H Qty: 28 0RF cyclobenzaprine 10 mg tablet 10 mg PO TID PRN (Reason: muscle spasm) Qty: 20 0RF lidocaine 5 % adhesive patch,medicated 1 patch TOP DAILY PRN (Reason: pain) Qty: 15 0RF Rx Instructions: leave on most painful area for up to 12 hrs Referrals: Kathie Ibarra DO [Primary Care Provider] -
[2021-02-19 20:26] VITALS: BP 123/78; PULSE 80; RESP 18; O2SAT 98
== END 2021-02-19 20:26 | disposition home or self-care (01) ==
PROVIDERS: Emergency Medicine; Emergency Provider Emergency Medicine; Family Provider Family Medicine; PCP Family Medicine
DX: J06.9 Acute upper respiratory infection, unspecified (principal); F17.200 Nicotine dependence, unspecified, uncomplicated; Z20.822 Contact with and (suspected) exposure to COVID-19
CPT/HCPCS: 71046; 87635; 87880; 99282; 99283; C9803

== ENCOUNTER → 2021-12-27 15:13 | Outpatient (CLI) | payer OTHER, MEDICAID, SELFPAY ==
[2018-09-09 13:26] VITALS: BMI 26.4
--- NOTE | 2021-12-27 15:16 | DI.US.S_ITS ---
PROCEDURE: US EXTREMITY NONVASC UPPER LT INDICATIONS: soft mass in left AC TECHNIQUE: Real-time scanning was performed of the left antecubital fossa , with image documentation. COMPARISON: None. FINDINGS/IMPRESSION: Focused sonographic evaluation of the left antecubital fossa demonstrates a focal area of signal change measuring 2.1 x 0.9 centimeters. in the muscle and possibly mild tendinous junction at the area of concern. Findings are non-specific. CT with contrast or MRI recommended for further characterization. Dictated by: Rosalio Loja M.D. on 12/27/2021 at 16:20 Approved by: Rosalio Loja M.D. on 12/27/2021 at 16:23
== END ==
PROVIDERS: Family Provider Family Medicine; PCP Family Medicine; Referring Provider Family Medicine; Visit Provider Family Medicine
DX: R22.32 Localized swelling, mass and lump, left upper limb (principal)
CPT/HCPCS: 76882

== ENCOUNTER → 2022-01-07 17:14 | Outpatient (CLI) | payer OTHER, MEDICAID, SELFPAY ==
[2018-09-09 13:26] VITALS: BMI 26.4
--- NOTE | 2022-01-07 17:17 | DI.MRI.S_ITS ---
PROCEDURE: MR ELBOW LT W CON INDICATIONS: Soft mass L AC TECHNIQUE: Noncontrast coronal proton density fast spin echo and T2 fast spin echo with fat saturation, axial and sagittal T1 spin echo and T2 fast spin echo with fat saturation through the elbow. COMPARISON: None. FINDINGS: Image quality: Excellent. Lateral structures: The lateral ulnar collateral ligament and radial collateral ligament both appear intact. The overlying common extensor tendon also appears normal. Medial structures: The ulnar collateral ligament appears intact. The overlying common flexor tendon appears normal. The ulnar nerve appears normal in size and signal within the cubital tunnel. Anterior structures: No soft tissue mass is seen in the antecubital fossa. No fluid collection. Mild tendinosis involving distal biceps tendon at its proximal radial insertion is seen with mildly thickened tendon and slight heterogeneous tendon signal. Distal brachialis tendon is intact. No bicipitoradial bursal fluid. The median and radial neurovascular bundles appear normal; no focal muscle atrophy to suggest nerve impingement. Posterior structures: The conjoint triceps tendon from the long and lateral heads appears intact. The medial head of the triceps tendon also appears normal, with direct muscle insertion onto the olecranon. No olecranon bursal fluid. Bone and cartilage: No bone marrow contusions or fractures. No osteochondral injuries. IMPRESSION: 1. No soft tissue mass is noted in antecubital fossa. No fluid collection. 2. Finding is suggestive of very mild tendinosis involving distal biceps tendon at its proximal radial insertion. No other tendon or muscle signal abnormality is seen. No intramuscular mass or fluid collection. 3. Medial and lateral collateral ligaments are intact. Dictated by: Tevin Javier M.D. on 01/08/2022 at 10:09 Approved by: Tevin Javier M.D. on 01/08/2022 at 10:25
== END ==
PROVIDERS: Family Provider Family Medicine; PCP Family Medicine; Referring Provider Family Medicine; Visit Provider Family Medicine
DX: R22.32 Localized swelling, mass and lump, left upper limb (principal)
CPT/HCPCS: 73221

== ENCOUNTER → 2022-01-23 10:30 | Outpatient (CLI) | payer OTHER, MEDICAID, SELFPAY ==
[2018-09-09 13:26] VITALS: BMI 26.4
--- NOTE | 2022-01-23 10:32 | DI.MG.S_ITS ---
BILATERAL DIGITAL SCREENING MAMMOGRAM 3D/2D WITH CAD: 01/23/2022 CLINICAL: Routine screening. Family history of breast cancer. No prior exams were available for comparison. Both breasts are heterogeneously dense, which may obscure small masses (category c / 51-75% glandular tissue). Current study was also evaluated with a Computer Aided Detection (CAD) system. There is a possible irregular high density asymmetry in the right breast at 11 o'clock anterior depth. No other significant masses, calcifications, or other findings are seen in either breast. IMPRESSION: INCOMPLETE: NEEDS ADDITIONAL IMAGING EVALUATION The possible irregular high density asymmetry in the right breast most likely is fibroglandular tissue and is indeterminate. Additional views with possible ultrasound are recommended. Based on the Tyrer Cuzick model (a risk assessment model) the patient's lifetime risk is 12.5% and her 10 year risk is 2.3%. According to the ACR, ACS, and NCCN guidelines, an annual breast MRI exam along with mammogram is recommended if the patient's lifetime risk is 20% or greater. This exam was interpreted at Station ID: [id number]. NOTE: For mammograms, a report in lay terms will be sent to the patient. Approximately 15% of breast malignancies will not be visualized mammographically. In the management of a palpable breast mass, a negative mammogram must not discourage biopsy of a clinically suspicious lesion. Electronically Signed By: Shell [email or web address]/adán:01/23/2022 17:52:48 letter sent: Additional Imaging Needed ACR BI-RADS Category 0: Incomplete 3340F
== END ==
PROVIDERS: Family Provider Family Medicine; PCP Family Medicine; Referring Provider Family Medicine; Visit Provider Family Medicine
DX: Z12.31 Encounter for screening mammogram for malignant neoplasm of breast (principal); Z80.3 Family history of malignant neoplasm of breast
CPT/HCPCS: 77063; 77067

== ENCOUNTER → 2022-02-27 09:53 | Outpatient (CLI) | payer OTHER, MEDICAID, SELFPAY ==
[2018-09-09 13:26] VITALS: BMI 26.4
[2022-02-27 12:55] LABS: COVID19 -Nasal RAPID Negative (Negative)
== END ==
PROVIDERS: Family Provider Family Medicine; PCP Family Medicine; Visit Provider Surgery
DX: Z20.822 Contact with and (suspected) exposure to COVID-19 (principal); Z01.812 Encounter for preprocedural laboratory examination
CPT/HCPCS: 87635; C9803

== ENCOUNTER 2022-02-28 07:13 | Day surgery (SDC) | payer OTHER, MEDICAID, SELFPAY ==
[2018-09-09 13:26] VITALS: BMI 26.4
[2022-02-28] MEDS: LACTATED RINGERS 1,000 ML 200 ML IV (07:25)
[2022-02-28 07:32] VITALS: BP 113/75; PULSE 84; RESP 16; TEMP 36.3; O2SAT 100; BMI 28.3
--- NOTE | 2022-02-28 08:08 | PM.HP.1 ---
History of Present Illness History of Present Illness Date Patient Seen: 02/28/22 Time Patient Seen: 08:08 Chief complaint: SDC Narrative: The patient presents for colorectal screening. Her father passed from colon cancer. Had a previous colonoscopy with benign polyps. Recently been having some diarrhea nonbloody. No nausea, vomiting, abdominal pain, loss of appetite, unexplained weight loss, Patient History Medical History (Updated 01/16/22 @ 17:01 by Kathie Ibarra DO) Cervical dystonia Chronic left shoulder pain (12/05/15) Colon polyps Family history of colon cancer Family history of melanoma History of heavy periods Kidney stone (~2013) Menopausal symptom Menorrhagia Painful menstrual flow Tobacco use (06/16/16) Trigeminal neuralgia UTI (urinary tract infection) (~2013) Surgical History Anesthesia H/O vaginal hysterectomy (~2017) History of endometrial ablation (~2015) History of lithotripsy History of lumpectomy (~1991) S/P nasal surgery Status post tubal ligation (~2015) Family & Social History Family History Father Age: 71 Colon cancer Mother Fibromyalgia History of bladder surgery Grandmother Bladder cancer Social History: household members family,other,children Tobacco & Substance use: Tobacco type cigarettes Smoking Status Current some day smoker alcohol intake current alcohol intake frequency holiday/special occasion Substance Use Type does not use Meds Home Medications and Allergies Home Medications Medication Instructions Recorded Confirmed Type gabapentin 100 mg capsule 100 mg PO HS #60 caps 06/16/16 02/28/22 Rx albuterol sulfate 90 mcg/actuation 2 puff inhalation Q6H PRN 05/24/19 02/28/22 Rx aerosol inhaler shortness of breath or wheezing #6.7 grams epinephrine 0.3 mg/0.3 mL 0.3 mg (0.3 mL) IM Q5-15M PRN 10/20/19 02/28/22 Rx injection, auto-injector (EpiPen anaphylaxis #2 ea 2-Jason) ondansetron 4 mg disintegrating See Rx Instructions .Route 12/03/21 02/28/22 Rx tablet .COMPLEX #20 tabs dextroamphetamine-amphetamine 10 5 mg PO .afternoon #15 tabs 02/18/22 02/28/22 Rx mg tablet (Adderall) peg 3350-electrolytes 236 240 ml PO Q10M #4,000 mL 02/21/22 02/28/22 Rx gram-22.74 gram-6.74 gram-5.86 gram solution (Golytely) dextroamphetamine-amphetamine ER 30 mg PO DAILY #30 caps 02/25/22 02/28/22 Rx 30 mg 24hr capsule,extend release Allergies Allergy/AdvReac Type Severity Reaction Status Date / Time bee venom protein (honey bee) Allergy Severe Difficulty Verified 01/16/22 11:58 Breathing, edema Penicillins [PENICILLINS] Allergy Severe Vomiting Verified 01/16/22 11:58 and rash ketorolac [From TORADOL] Allergy Intermediate ABDOMINAL Verified 01/16/22 11:58 PAIN doxycycline AdvReac Severe Abdominal Verified 01/16/22 11:58 Pain tordal AdvReac Mild Gastrointestinal Uncoded 01/16/22 11:58 Upset Exam Vital Signs (past 8 hours): - 02/28/22 07:32 Temperature 97.3 F L Pulse Rate 84 Respiratory Rate 16 Blood Pressure 113/75 Pulse Oximetry 100 Oxygen Delivery Method Room Air Oxygen Delivery Method Room Air Narrative Exam Narrative: General adult woman alert oriented no acute distress Assessment & Plan Assessment and plan (1) Family history of colon cancer: Status: Acute (2) Colon polyps: Qualifiers: Colon polyp type: unspecified Colon location: unspecified part of colon Qualified Code(s): K63.5 - Polyp of colon Status: Acute Assessment & Plan narrative: The patient requires colorectal screening and colonoscopy is recommended. Technical details were discussed. Risks, benefits, alternatives explained. Risks including but not limited to myocardial infarction, aspiration, bleeding, pain, missed lesion, incomplete examination, need for further radiographic studies, colonic perforation, and need for major abdominal surgery were discussed. All questions were answered to their satisfaction, and they are in agreement with this plan. Time Spent With Patient Critical Care time: I spent a total of [] minutes of critical care time on this patient's care today; this time is exclusive of procedural time.
--- NOTE | 2022-02-28 08:24 | P.OP.COLON_ITS ---
Operative Date/Time/Diagnoses Date of procedure: 02/28/22 Time of procedure: 08:24 Pre-op diagnosis: Personal history of colonic polyps, family history of colon cancer Post-op diagnosis: same Procedure & Clinicians Study performed: Colonoscopy aborted Same procedure as scheduled: Yes Indications: Personal history of colonic polyps, family history of colon cancer Surgeon: James Tuttle Procedure Notes Procedure in detail: The history and physical was performed/updated and the patient is ASA class is 2. The procedure was discussed in detail with the patient. Potential risks complications including infection, bleeding, missed diagnosis, perforation, need for surgery, and were explained. Their questions were answered and informed consent was obtained. Patient was brought to the procedure room and placed standard monitoring e quipment. The patient's vital signs were monitored continuously throughout the entire procedure. Prior to starting time-out was performed. The patient was placed in the left lateral recumbent position. Procedural sedation was administered by anesthesia. Examination began with a thorough inspection of the perianal area there was no evidence of fissures, fistulae, external hemorrhoids or cutaneous malignancy. The colonoscopy scope was then placed into the anal canal and was advanced forward. The quality of the preparation was poor. Despite irrigation the preparation remained inadequate for adequate and safe visualization. Procedure was aborted. Specimen(s): none sent Impression: Aborted colonoscopy Post-procedure Plan for aftercare: Contact surgical clinic to reschedule with alternative bowel prep Disposition: same day surgery
[2022-02-28 08:29] VITALS: BP 99/58; PULSE 79; RESP 15; TEMP 37.1; O2SAT 96
[2022-02-28 08:33] VITALS: BP 108/72; PULSE 80; RESP 17; TEMP 36.7; O2SAT 98
[2022-02-28 08:38] VITALS: BP 118/73; PULSE 75; RESP 19; TEMP 36.7; O2SAT 96
== END 2022-02-28 08:50 | disposition home or self-care (01) ==
PROVIDERS: Family Provider Family Medicine; PCP Family Medicine; Referring Provider Surgery; Visit Provider Surgery
PROC: 0DJD8ZZ Inspection of Lower Intestinal Tract, Via Natural or Artificial Opening Endoscopic (ICD-10-PCS; CPT 45378; principal; 2022-02-28 08:15)
DX: Z12.11 Encounter for screening for malignant neoplasm of colon (principal); Z86.010 Personal history of colon polyps; Z80.0 Family history of malignant neoplasm of digestive organs; Z53.09 Procedure and treatment not carried out because of other contraindication
CPT/HCPCS: 45378

== ENCOUNTER 2022-05-06 12:37 | Day surgery (SDC) | payer OTHER, MEDICAID, SELFPAY ==
[2018-09-09 13:26] VITALS: BMI 26.4
--- NOTE | 2022-05-06 | PATH_ITS ---
[facility] Accession Number: [id number] No. of containers..01 Tissue . 01 Material submitted: . sigmoid colon - SIGMOID POLYPS X 4 . 01 Diagnosis: Sigmoid Colon, Polyps x4: Hyperplastic polyp, one fragment. MRV 05/12/2022 1308 Local . 01 Electronically signed: . Aggie Malik MD, Pathologist NPI- [id number] . 01 Gross description: . SIGMOID POLYPS X 4: Received in formalin is 1 fragment(s) of joaquin, soft tissue measuring 0.5 x 0.3 x 0.3 cm submitted entirely in 1 cassette(s) /SANDRO 05/07/2022 2326 Local . 01 Pathologist provided ICD-10: K63.5 . 01 CPT . 116577 Specimen Comment: A courtesy copy of this report has been sent to [phone] Performed at: 01 [facility] [address] [place] [address], [place], [place] [id number] MD Carrillo Dubois MD Phone: [phone]
--- NOTE | 2022-05-06 12:52 | PM.HP.1 ---
History of Present Illness History of Present Illness Date Patient Seen: 05/06/22 Time Patient Seen: 08:08 Chief complaint: SDC Narrative: The patient presents for colorectal screening. Her father passed from colon cancer. Had a previous colonoscopy with benign polyps. Recently been having some diarrhea nonbloody. No nausea, vomiting, abdominal pain, loss of appetite, unexplained weight loss, Patient History Medical History Cervical dystonia Chronic left shoulder pain (12/05/15) Colon polyps Family history of colon cancer Family history of melanoma History of heavy periods Kidney stone (~2013) Menopausal symptom Menorrhagia Painful menstrual flow Tobacco use (06/16/16) Trigeminal neuralgia UTI (urinary tract infection) (~2013) Surgical History Anesthesia H/O vaginal hysterectomy (~2017) History of endometrial ablation (~2015) History of lithotripsy History of lumpectomy (~1991) S/P nasal surgery Status post tubal ligation (~2015) Family & Social History Family History Father Age: 71 Colon cancer Mother Fibromyalgia History of bladder surgery Grandmother Bladder cancer Social History: household members family,other,children Tobacco & Substance use: Tobacco type cigarettes Smoking Status Current some day smoker alcohol intake current alcohol intake frequency holiday/special occasion Substance Use Type does not use Meds Home Medications and Allergies Home Medications Medication Instructions Recorded Confirmed Type epinephrine 0.3 mg/0.3 mL 0.3 mg (0.3 mL) IM Q5-15M PRN 10/20/19 05/06/22 Rx injection, auto-injector (EpiPen anaphylaxis #2 ea 2-Jason) dextroamphetamine-amphetamine ER 30 mg PO DAILY #60 caps 04/11/22 05/06/22 Rx 15 mg 24hr capsule,extend release (Adderall XR) dextroamphetamine-amphetamine ER 30 mg PO DAILY #30 caps 04/17/22 Rx 30 mg 24hr capsule,extend release dextroamphetamine-amphetamine 10 5 mg PO .afternoon #15 tabs 05/01/22 05/06/22 Rx mg tablet (Adderall) gabapentin 100 mg capsule 600 mg PO HS 05/06/22 05/06/22 History ondansetron 4 mg disintegrating See Rx Instructions .Route 05/06/22 05/06/22 History tablet .COMPLEX PRN Nausea And Vomiting Allergies Allergy/AdvReac Type Severity Reaction Status Date / Time bee venom protein (honey bee) Allergy Severe Difficulty Verified 01/16/22 11:58 Breathing, edema Penicillins [PENICILLINS] Allergy Severe Vomiting Verified 01/16/22 11:58 and rash ketorolac [From TORADOL] Allergy Intermediate ABDOMINAL Verified 01/16/22 11:58 PAIN doxycycline AdvReac Severe Abdominal Verified 01/16/22 11:58 Pain Exam Narrative Exam Narrative: General adult woman alert oriented no acute distress Abdomen soft nontender nondistended Assessment & Plan Assessment and plan (1) Family history of colon cancer: Status: Acute Assessment & Plan narrative: The patient requires colorectal screening and colonoscopy is recommended. Technical details were discussed. Risks, benefits, alternatives explained. Risks including but not limited to myocardial infarction, aspiration, bleeding, pain, missed lesion, incomplete examination, need for further radiographic studies, colonic perforation, and need for major abdominal surgery were discussed. All questions were answered to their satisfaction, and they are in agreement with this plan. Time Spent With Patient Critical Care time: I spent a total of [] minutes of critical care time on this patient's care today; this time is exclusive of procedural time.
[2022-05-06 13:09] VITALS: BP 108/75; PULSE 82; RESP 16; O2SAT 95
[2022-05-06 13:29] VITALS: BP 108/75; PULSE 72; RESP 16; TEMP 37.2; O2SAT 96
[2022-05-06] MEDS: LACTATED RINGERS 1,000 ML 200 ML IV (13:31)
[2022-05-06 14:59] VITALS: BP 94/59; PULSE 72; RESP 15; TEMP 36.4; O2SAT 97
--- NOTE | 2022-05-06 15:01 | PM.OP.COLON ---
Operative Date/Time/Diagnoses Date of procedure: 05/06/22 Time of procedure: 15:01 Pre-op diagnosis: Colorectal screening Family history of colon cancer Post-op diagnosis: other (Colonic polyps x3) Procedure & Clinicians Study performed: Colonoscopy and polypectomy Same procedure as scheduled: Yes Indications: Family history of colon cancer. Colorectal screening Surgeon: James Tuttle Procedure Notes Procedure in detail: The history and physical was performed/updated and the patient is ASA class is 2. The procedure was discussed in detail with the patient. Potential risks complications including infection, bleeding, missed diagnosis, perforation, need for surgery, and were explained. Their questions were answered and informed consent was obtained. Patient was brought to the procedure room and placed standard monitoring equipment. The patient's vital signs were monitored continuously throughout the entire procedure. Prior to starting time-out was performed. The patient was placed in the left lateral recumbent position. Procedural sedation was administered by anesthesia. Examination began with a thorough inspection of the perianal area there was no evidence of fissures, fistulae, external hemorrhoids or cutaneous malignancy. The colonoscopy scope was then placed into the anal canal and was advanced to the cecum, which was identified by the ileocecal valve, the appendiceal orifice and the confluence of the taenia. The scope was then slowly withdrawn examining colon thoroughly in all directions, irrigating it of any residual stool. Within the sigmoid colon there were 3 polyps all less than 1 cm in size which were removed with cold snare. There were no other masses or inflammation The patient tolerated the procedure well. They will be discharged once criteria are met. The prep was of fair quality. The withdrawl time was 10 minutes. Specimen(s): other (Sigmoid colonic polyps) Complications: none Impression: Colonic polyps Post-procedure Recommendations: Colonoscopy in 5 years and High fiber diet Plan for aftercare: Follow-up is dependent on pathology findings Disposition: same day surgery
[2022-05-06 15:04] VITALS: BP 87/54; PULSE 71; RESP 15; O2SAT 98
[2022-05-06 15:10] VITALS: BP 105/48; PULSE 82; RESP 15; O2SAT 98
[2022-05-06 15:12] VITALS: BP 109/61; PULSE 70; RESP 15; TEMP 36.4; O2SAT 98
== END 2022-05-06 15:37 | disposition home or self-care (01) ==
PROVIDERS: Family Provider Family Medicine; PCP Family Medicine; Referring Provider Surgery; Visit Provider Surgery
PROC: 0DJD8ZZ Inspection of Lower Intestinal Tract, Via Natural or Artificial Opening Endoscopic (ICD-10-PCS; CPT 45378; principal; 2022-05-06 13:45)
DX: Z12.11 Encounter for screening for malignant neoplasm of colon (principal); Z80.0 Family history of malignant neoplasm of digestive organs; K63.5 Polyp of colon
CPT/HCPCS: 45385; J2704

== ENCOUNTER 2022-07-18 13:25 | Emergency (ER) | payer OTHER, MEDICAID, SELFPAY ==
[2018-09-09 13:26] VITALS: BMI 26.4
[2022-07-18 13:49] VITALS: BP 137/60; PULSE 89; RESP 16; TEMP 36.6; O2SAT 98; BMI 28.3
[2022-07-18] MEDS: predniSONE 20 MG TABLET 40 MG PO (14:09)
[2022-07-18] MEDS: methocarbamoL 500 MG TABLET 750 MG PO (14:09)
[2022-07-18] MEDS: LIDOCAINE PATCH 1 EACH ADH..PATCH TOP (14:09)
--- NOTE | 2022-07-18 14:16 | ED_ITS ---
HPI - Back Pain/Injury <Aggie Mckenna, [facility] - Last Filed: 07/18/22 15:16> General Chief Complaint: Back Pain/Injury Stated Complaint: back injury Time Seen by Provider: 07/18/22 13:58 Source: patient History of Present Illness HPI Narrative: This is a 46-year-old female with history of back pain in the past who presents to the emergency department with ongoing low back pain secondary to an injury she had while bending over picking up a backpack. She states that she had moved a backpack that was approximately 40 lb and felt immediate pain on bilateral sides of her low back with right-sided sciatica symptoms for the next 2 days. She denies any fever chills, denies history of IV drug use. States that she has had ongoing muscle spasms and this morning she was so stiff she did not want to get out of bed because all movements have been so painful. She denies any urinary changes, denies flank pain, nausea, vomiting, weakness, states that her back has been very sore. She endorses that she has history of GERD, stomach pain, she has Toradol listed as an allergy because she had severe stomach pain after receiving it and went home and vomited after that dose. She denies any blood in her emesis and denies history of GI bleeding. She states that she can tolerate ibuprofen 600 mg tabs but can not take any other NSAID. She does not take a PPI at baseline. Related Data Previous Rx's Medication Instructions Recorded epinephrine 0.3 mg/0.3 mL 0.3 mg (0.3 mL) IM Q5-15M PRN 10/20/19 injection, auto-injector (EpiPen anaphylaxis #2 ea 2-Jason) gabapentin 100 mg capsule 100 mg PO HS #30 caps 06/23/22 ondansetron 4 mg disintegrating See Rx Instructions .Route 07/10/22 tablet .COMPLEX #20 tabs bupropion HCl 150 mg 24 hr tablet, 150 mg PO QAM #90 tabs 07/17/22 extended release (Wellbutrin XL) dextroamphetamine-amphetamine 10 5 mg PO .afternoon #15 tabs 07/17/22 mg tablet (Adderall) dextroamphetamine-amphetamine ER 30 mg PO DAILY #60 caps 07/17/22 15 mg 24hr capsule,extend release (Adderall XR) ibuprofen 600 mg tablet 600 mg PO Q6-8H PRN fever or pain 07/18/22 #30 tabs lidocaine 5 % topical patch 1 patch topical DAILY PRN back 07/18/22 (Lidoderm) pain #15 ea methocarbamol 750 mg tablet 750 mg PO Q8H PRN spasms #30 tabs 07/18/22 methylprednisolone 4 mg tablets in See Rx Instructions PO .COMPLEX 07/18/22 a dose pack (Medrol (Jason)) #21 ea omeprazole 40 mg capsule,delayed 40 mg PO DAILY #90 caps 07/18/22 release Allergies Allergy/AdvReac Type Severity Reaction Status Date / Time bee venom protein (honey bee) Allergy Severe Difficulty Verified 07/18/22 13:49 Breathing, edema Penicillins [PENICILLINS] Allergy Severe Vomiting Verified 07/18/22 13:49 and rash ketorolac [From TORADOL] Allergy Intermediate ABDOMINAL Verified 07/18/22 13:49 PAIN doxycycline AdvReac Severe Abdominal Verified 07/18/22 13:49 Pain Review of Systems <GENNY Kumar - Last Filed: 07/18/22 15:16> Review of Systems ROS Unobtainable: All systems reviewed & are unremarkable except as noted in HPI and below Patient History <GENNY Kumar - Last Filed: 07/18/22 15:16> Medical History (Updated 07/18/22 @ 15:13 by GENNY Kumar) Cervical dystonia Chronic left shoulder pain (12/05/15) Colon polyps Family history of colon cancer Family history of melanoma History of heavy periods Kidney stone (~2013) Menopausal symptom Menorrhagia Painful menstrual flow Tobacco use (06/16/16) Trigeminal neuralgia UTI (urinary tract infection) (~2013) Surgical History Anesthesia H/O vaginal hysterectomy (~2017) History of endometrial ablation (~2015) History of lithotripsy History of lumpectomy (~1991) S/P nasal surgery Status post tubal ligation (~2015) Family History Father Age: 71 Colon cancer Mother Fibromyalgia History of bladder surgery Grandmother Bladder cancer Social History marital status: number of children: 1 household members: family, children and other education level: high school occupational status: employed Smoking Status: Current some day smoker alcohol intake: current substance use type: does not use Smoking Status: Current some day smoker alcohol intake frequency: holidays/special occasions only Substance Use Type: does not use Exam <GENNY Kumar - Last Filed: 07/18/22 15:16> Narrative Exam Narrative: Reviewed vitals signs and nursing notes. General: Pleasant, sitting upright, in no acute distress, well groomed, afebrile HEENT: symmetrical facial expressions, moist mucous membranes, neck is supple CV: regular rate and rhythm, warm extremities Respiratory: normal work of breathing, without tachypnea or hypoxia. GI: abdomen soft, nondistended, without CVA tenderness bilaterally. MSK: moves all extremities, no weakness, normal tone, ambulatory without deficit, extremities strong bilaterally upper and lower without weakness, patient has no tenderness to her midline lumbar spine, no CVA tenderness however she has bilateral muscle tension to her lumbar spine. She does not have any palpable deformities or rash Skin: brisk capillary refill, without rash or wound Neuro: clear speech and normal cognition, A&O x3, GCS 15, no focal motor or sensation deficits Initial Vital Signs Initial Vital Signs: Vital Signs Temperature 97.8 F 07/18/22 13:49 Pulse Rate 89 07/18/22 13:49 Respiratory Rate 16 07/18/22 13:49 Blood Pressure 137/60 07/18/22 13:49 Pulse Oximetry 98 07/18/22 13:49 Oxygen Delivery Method Room Air 07/18/22 13:49 <Washington Hyde DO - Last Filed: 07/18/22 14:21> Initial Vital Signs Initial Vital Signs: Vital Signs Temperature 97.8 F 07/18/22 13:49 Pulse Rate 89 07/18/22 13:49 Respiratory Rate 16 07/18/22 13:49 Blood Pressure 137/60 07/18/22 13:49 Pulse Oximetry 98 07/18/22 13:49 Oxygen Delivery Method Room Air 07/18/22 13:49 Course <GENNY Kumar - Last Filed: 07/18/22 15:16> Orders Ordered: ED Orders 07/18/22 15:12 Urine Microscopic Stat Discontinued Medications Hydrocodone Bitart/Acetaminophen (Hydrocodone/Acet 5/325 Tablet) 1 tab PO NOW ONE Stop: 07/18/22 14:09 Last Admin: 07/18/22 14:30 Dose: 1 tab Documented By: ARNAUD Lidocaine (Lidocaine Patch 1 Each Adh..Patch) 1 each TOP NOW ONE Stop: 07/18/22 14:00 Last Admin: 07/18/22 14:09 Dose: 1 each Documented By: SKYLER Methocarbamol (Methocarbamol 500 Mg Tablet) 750 mg PO NOW ONE Stop: 07/18/22 14:00 Last Admin: 07/18/22 14:09 Dose: 750 mg Documented By: SKYLER Pantoprazole Sodium (Pantoprazole Dr 20 Mg Tablet) 20 mg PO NOW ONE Stop: 07/18/22 14:09 Last Admin: 07/18/22 14:30 Dose: 20 mg Documented By: ARNAUD Prednisone (Prednisone 20 Mg Tablet) 40 mg PO NOW ONE Stop: 07/18/22 14:00 Last Admin: 07/18/22 14:09 Dose: 40 mg Documented By: SKYLER Vital Signs Vital signs: Vital Signs - 8 hr 07/18/22 13:49 Temperature 97.8 F Pulse Rate 89 Respiratory Rate 16 Blood Pressure 137/60 Pulse Oximetry 98 Oxygen Delivery Method Room Air <Washington Hyde DO - Last Filed: 07/18/22 14:21> Orders Ordered: ED Orders 07/18/22 15:12 Urine Microscopic Stat Discontinued Medications Hydrocodone Bitart/Acetaminophen (Hydrocodone/Acet 5/325 Tablet) 1 tab PO NOW ONE Stop: 07/18/22 14:09 Last Admin: 07/18/22 14:30 Dose: 1 tab Documented By: ARNAUD Lidocaine (Lidocaine Patch 1 Each Adh..Patch) 1 each TOP NOW ONE Stop: 07/18/22 14:00 Last Admin: 07/18/22 14:09 Dose: 1 each Documented By: SKYLER Methocarbamol (Methocarbamol 500 Mg Tablet) 750 mg PO NOW ONE Stop: 07/18/22 14:00 Last Admin: 07/18/22 14:09 Dose: 750 mg Documented By: SKYLER Pantoprazole Sodium (Pantoprazole Dr 20 Mg Tablet) 20 mg PO NOW ONE Stop: 07/18/22 14:09 Last Admin: 07/18/22 14:30 Dose: 20 mg Documented By: ARNAUD Prednisone (Prednisone 20 Mg Tablet) 40 mg PO NOW ONE Stop: 07/18/22 14:00 Last Admin: 07/18/22 14:09 Dose: 40 mg Documented By: SKYLER Vital Signs Vital signs: Vital Signs - 8 hr 07/18/22 13:49 Temperature 97.8 F Pulse Rate 89 Respiratory Rate 16 Blood Pressure 137/60 Pulse Oximetry 98 Oxygen Delivery Method Room Air [facility] - Back Pain/Injury <Aggie Mckenna [facility] - Last Filed: 07/18/22 15:16> [facility] Narrative Medical decision making narrative: Chief Complaint: low back pain Independent historian: patient Multiple etiologies for patient's symptoms considered including, but not limited to: disc injury/herniation, radiculopathy, paraspinal or other muscular strain, chronic pain, acute fracture, urinary tract infection, osteoarthritis, degenerative disc disease, cauda equina, osteomyelitis, epidural abscess, spinal stenosis, ligamental injury. I have reviewed the patient's vital signs and nursing notes as well as prior records if available. Prior Charts reviewed: Previous ED visits for dental and musculoskeletal complaints Imaging reviewed: No imaging indicated as is patient is atraumatic, without red flag symptoms of low back pain Course of care: Patient's pain was treated with methocarbamol, prednisone, lidocaine, Protonix, hydrocodone x1. Suspect likely musculoskeletal etiology strain/sprain,/acute exacerbation of chronic low back pain. Patient's straight leg raise test was positive. No back pain red flags on history or physical. No history of IV substance use, or bony tenderness to palpation, no trauma, no bony tenderness to palpation , afebrile, no CVAT, no urinary symptoms. No bowel or urinary incontinence or retention, no saddle anesthesia, no new/worsening distal weakness, decreased reflexes or foot drop. Pt is nontoxic appearing. Patient has soft tissue tenderness to palpation. Pt is neurovascularly intact distally, afebrile, without immunosuppression or evidence of infection, peritoneal signs, hypertensive crisis, incontinence, or meningeal signs. Patient has history of hysterectomy Patient's UA is negative for infection, micro is pending, encouraged patient's stay hydrated, follow up with her primary care provider for referral to physical therapy, and her symptoms improved course of her stay after medications. Discharge diagnosis, return precautions and plan discussed with patient followed by verbalization of understanding. Social considerations that may affect disposition: none Questions are addressed and there is agreement with the plan and for follow-up. Patient is appropriate for outpatient management. MIPS: This encounter doesn't have any diagnosis' associated with MIPS criteria. Discharge Plan Departure Patient Disposition: Home Clinical Impression: Lumbago with sciatica Qualifiers: Chronicity: acute Back pain laterality: right Sciatica laterality: sciatica of right side Qualified Code(s): M54.41 - Lumbago with sciatica, right side Instructions: DI for Back Pain With Sciatica, DI for Back Spasm Activity Restrictions/Additional Instructions: *You have been diagnosed with a flare of your low back pain causing nerve inflammation and sciatica symptoms. Please start taking omeprazole daily to help protect your stomach from acid, it is okay to take Tums or Pepto to help coat your stomach if it feels painful. Please use ibuprofen, muscle relaxers, and lidocaine patches as needed to help treat your pain. Avoid over stretching, over exerting herself or over massaging your injury. 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 Sorry for your pain. *What to do: *Please continue to take your regular medications as directed. [ x] New medication prescriptions sent to your pharmacy: [[facility] ] [ ] New medication written as a paper prescription [ ] No new medications given *Please call and schedule follow up with your primary care provider in 2-3 days, at least for an update. Let them know you were seen in the Emergency Department for the above problem. We will electronically transmit a record of today's note if your PCP or specialist is in our system. *If you do not have a primary care provider please contact [phone] to establish care with one of the [facility] primary care providers. *Return to the Emergency Department for worsening symptoms, inability to keep liquids down, fever greater than 101F, chills, or other concerning symptom. Prescriptions: New omeprazole 40 mg capsule,delayed release(DR/EC) 40 mg PO DAILY Qty: 90 1RF methylprednisolone [Medrol (Jason)] 4 mg tablets,dose pack See Rx Instructions .ROUTE .COMPLEX Qty: 21 0RF Rx Instructions: orally per package directions methocarbamol 750 mg tablet 750 mg PO Q8H PRN (Reason: spasms) Qty: 30 0RF lidocaine [Lidoderm] 5 % adhesive patch,medicated 1 patch topical DAILY PRN (Reason: back pain) Qty: 15 0RF Rx Instructions: leave on most painful area for up to 12 hrs ibuprofen 600 mg tablet 600 mg PO Q6-8H PRN (Reason: fever or pain) Qty: 30 0RF Rx Instructions: Take with food and water No Action bupropion HCl [Wellbutrin XL] 150 mg tablet extended release 24 hr 150 mg PO QAM Qty: 90 1RF dextroamphetamine-amphetamine [Adderall] 10 mg tablet 5 mg PO .afternoon Qty: 15 0RF dextroamphetamine-amphetamine [Adderall XR] 15 mg capsule,extended release 24hr 30 mg PO DAILY Qty: 60 0RF epinephrine [EpiPen 2-Jason] 0.3 mg/0.3 mL auto-injector 0.3 mg IM Q5-15M PRN (Reason: anaphylaxis) Qty: 2 0RF Rx Instructions: do not exceed 3 doses per episode. Must be seen in ER after injection gabapentin 100 mg capsule 100 mg PO HS Qty: 30 1RF ondansetron 4 mg tablet,disintegrating See Rx Instructions .ROUTE .COMPLEX Qty: 20 0RF Dose Instruction: DISSOLVE ONE TABLET IN MOUTH EVERY EIGHT HOURS NEEDED FOR NAUSEA AND VOMITING Rx Instructions: DISSOLVE ONE TABLET IN MOUTH EVERY EIGHT HOURS NEEDED FOR NAUSEA AND VOMITING Referrals: Lula Shell DO [Primary Care Provider] - Stand Alone Forms: Patient Portal/API <Washington Hyde DO - Last Filed: 07/18/22 14:21> Cosign ED Attending Cosignature Attestation: Dr Hyde Co-Sign Statement: I was available for consultation during this patient's emergency department visit. This chart is signed by myself for administrative purposes only. I did not have direct contact with this patient during this visit. They were seen independently by the APC.
[2022-07-18] MEDS: HYDROCODONE/ACET 5/325 TABLET 1 TAB PO (14:30)
[2022-07-18] MEDS: PANTOPRAZOLE DR 20 MG TABLET PO (14:30)
[2022-07-18 15:25] LABS: Bacteria Urine Occasional (0-1); Culture Indicated Urine Cult Not Indicated; RBC Urine 0-1/HPF (0-5/HPF); Squamous Epithelial Cell Urine 0-1 /HPF (0-5/HPF); WBC Urine None Seen (0-5/HPF)
[2022-07-18 19:20] LABS: Ictotest Urine QNS (Negative)
== END 2022-07-18 15:30 | disposition home or self-care (01) ==
PROVIDERS: Emergency Provider Nurse Practitioner Critical Care Medicine; Family Provider Family Medicine; PCP Family Medicine
DX: M54.41 Lumbago with sciatica, right side (principal)
CPT/HCPCS: 81003; 81015; 99283

== ENCOUNTER → 2022-10-01 14:07 | Outpatient (CLI) | payer OTHER, MEDICAID, SELFPAY ==
[2018-09-09 13:26] VITALS: BMI 26.4
--- NOTE | 2022-10-01 14:09 | DI.RAD.S_ITS ---
PROCEDURE: XR LUMBAR SPINE 2-3V INDICATIONS: low back pain TECHNIQUE: 3 views of the lumbar spine were acquired. COMPARISON: None. FINDINGS: Bones: 5 [id number] vertebrae are present. There is normal bony alignment. No vertebral body compression fractures. Lower lumbar facet arthropathy. No suspicious bony lesions. Soft tissues: Overlying bowel gas pattern is normal. No suspicious soft tissue calcifications. IMPRESSION: Lower lumbar facet arthropathy. No acute bony abnormality. Dictated by: Frankie Lima M.D. on 10/01/2022 at 18:40 Approved by: Frankie Lima M.D. on 10/01/2022 at 18:40
== END ==
PROVIDERS: Family Provider Family Medicine; PCP Family Medicine; Referring Provider Family Medicine; Visit Provider Family Medicine
DX: M54.50 Low back pain, unspecified (principal); M47.816 Spondylosis without myelopathy or radiculopathy, lumbar region
CPT/HCPCS: 72100

== ENCOUNTER → 2023-01-28 13:52 | Outpatient (CLI) | payer OTHER, MEDICAID, SELFPAY ==
[2018-09-09 13:26] VITALS: BMI 26.4
[2023-01-28 15:18] LABS: Alanine Aminotransferase 49 IU/L (<35); Albumin 4.4 g/dL (3.5-5.0); Albumin Globulin Ratio 1.8 (1.0-2.8); Alkaline Phosphatase 62 U/L (38-126); Aspartate Aminotransferase 33 IU/L (14-36); BUN Creatinine Ratio 17.9 (6-22); Bilirubin Total 0.4 mg/dL (0.2-1.3); Blood Urea Nitrogen 14 mg/dL (7-17); Calcium 9.5 mg/dL (8.4-10.2); Carbon Dioxide 30 mmol/L (22-32); Chloride 100 mmol/L (98-107); Estimated Glomerular Filt Rate > 60 mL/min (>60); Globulin 2.5 g/dL (1.7-4.1); Glucose 92 mg/dL (70-100); HEMOLYSIS < 15 (0-50); Potassium 4.7 mmol/L (3.4-5.1); Sodium 137 mmol/L (137-145); Total Protein 6.9 g/dL (6.3-8.2)
== END ==
PROVIDERS: Family Provider Family Medicine; PCP Family Medicine; Referring Provider Family Medicine; Visit Provider Family Medicine
DX: N95.1 Menopausal and female climacteric states (principal)
CPT/HCPCS: 36415; 80053

== ENCOUNTER → 2023-02-17 07:59 | Outpatient (CLI) | payer OTHER, MEDICAID, SELFPAY ==
[2018-09-09 13:26] VITALS: BMI 26.4
--- NOTE | 2023-02-17 08:01 | DI.RAD.S_ITS ---
PROCEDURE: XR HIP W PEL IF DONE SILVINO MIN 4V INDICATIONS: hip pain, low back pain TECHNIQUE: AP pelvis with lateral view(s) of the left hip(s). COMPARISON: None. FINDINGS: Bones: No fractures or dislocations. Mild bilateral and symmetric hip joint space narrowing and osteophytosis. Pelvic ring appears intact. No suspicious bony lesions. Soft tissues: The visualized bowel gas pattern is normal. No suspicious soft tissue calcifications. IMPRESSION: No acute bony abnormality. Mild bilateral hip joint osteoarthrosis.. Approved by: Shana Dumont M.D. on 02/17/2023 at 9:20
--- NOTE | 2023-02-17 08:01 | DI.RAD.S_ITS ---
PROCEDURE: XR LUMBAR SPINE 2-3V INDICATIONS: hip pain, low back pain TECHNIQUE: 3 views of the lumbar spine were acquired. COMPARISON: [facility], CR, XR LUMBAR SPINE 2-3V, 10/01/2022, 14:14. FINDINGS: Bones: 5 [id number] vertebrae are present. There is normal bony alignment. Mild multilevel disc height loss and osteophytosis, worse at L5-S1. Bilateral facet arthropathy, worse at L4-L5 and L5-S1. There is mild intervertebral disc height No vertebral body compression fractures. No suspicious bony lesions. Soft tissues: Overlying bowel gas pattern is normal. No suspicious soft tissue calcifications. IMPRESSION: No acute bony abnormality. Mild multilevel discogenic degeneration, worse at L5-S1. Facet arthropathy. No spondylolisthesis. Dictated by: Shana Dumont M.D. on 02/17/2023 at 9:20 Approved by: Shana Dumont M.D. on 02/17/2023 at 9:25
== END ==
PROVIDERS: Family Provider Family Medicine; PCP Family Medicine; Referring Provider Family Medicine; Visit Provider Family Medicine
DX: M16.0 Bilateral primary osteoarthritis of hip (principal); M25.551 Pain in right hip; M25.552 Pain in left hip; M51.37 Other intervertebral disc degeneration, lumbosacral region; M47.816 Spondylosis without myelopathy or radiculopathy, lumbar region; M47.817 Spondylosis without myelopathy or radiculopathy, lumbosacral region; M54.50 Low back pain, unspecified
CPT/HCPCS: 72100; 73522

== ENCOUNTER → 2023-05-06 11:06 | Outpatient (CLI) | payer OTHER, MEDICAID, SELFPAY ==
[2018-09-09 13:26] VITALS: BMI 26.4
== END ==
PROVIDERS: Family Provider Family Medicine; PCP Family Medicine; Visit Provider Family Medicine
DX: R31.9 Hematuria, unspecified (principal); R35.0 Frequency of micturition
CPT/HCPCS: 81002; 87077; 87086; 87147

== ENCOUNTER → 2023-10-08 11:54 | Outpatient (CLI) | payer OTHER, MEDICAID, SELFPAY ==
[2023-09-28 10:08] VITALS: BMI 26.4
--- NOTE | 2023-10-08 11:55 | DI.MG.S_ITS ---
BILATERAL DIGITAL DIAGNOSTIC MAMMOGRAM 3D/2D: 10/08/2023 CLINICAL: Additional evaluation requested from prior study. Due for Bilateral. Comparison is made to exam dated: 01/23/2022 mammogram - . Both breasts are heterogeneously dense, which may obscure small masses (category c / 51-75% glandular tissue). There is a biopsy clip in the right breast. There are post surgical changes in the left breast from prior excisional biopsy. The finding seen on screening mammogram 01/23/2022 does not persist with additional imaging and is consistent with superimposition of normal breast tissue. No significant masses, calcifications, or other findings are seen in either breast. IMPRESSION: BENIGN Superimposition of normal breast tissue. Status post right breast needle biopsy and left breast excisional biopsy. No mammographic evidence of malignancy. A 1 year screening mammogram is recommended. Findings and recommendations were conveyed to the patient during today's evaluation. Based on the Tyrer Cuzick model (a risk assessment model) the patient's lifetime risk is 12.4% and her 10 year risk is 2.6%. According to the ACR, ACS, and NCCN guidelines, an annual breast MRI exam along with mammogram is recommended if the patient's lifetime risk is 20% or greater. This exam was interpreted at Station ID: [id number]. NOTE: For mammograms, a report in lay terms will be sent to the patient. Approximately 15% of breast malignancies will not be visualized mammographically. In the management of a palpable breast mass, a negative mammogram must not discourage biopsy of a clinically suspicious lesion. Electronically Signed By: Shana Dumont M.D., Ph.D. eb/:10/08/2023 14:14:50 letter sent: Normal Exam ACR BI-RADS Category 2: Benign Finding(s) 3342F
== END ==
PROVIDERS: Family Provider Family Medicine; PCP Family Medicine; Referring Provider Family Medicine; Visit Provider Family Medicine
DX: R92.8 Other abnormal and inconclusive findings on diagnostic imaging of breast (principal); N63.10 Unspecified lump in the right breast, unspecified quadrant; R92.333 Mammographic heterogeneous density, bilateral breasts
CPT/HCPCS: 77066; G0279

== ENCOUNTER → 2024-10-24 11:26 | Outpatient (CLI) | payer OTHER, MEDICAID, SELFPAY ==
[2023-09-28 10:08] VITALS: BMI 26.4
--- NOTE | 2024-10-24 11:32 | DI.RAD.S_ITS ---
PROCEDURE: XR RIBS LT MIN 3V W CXR1V INDICATIONS: Lt rib pain TECHNIQUE: 2 views of the ribs were acquired, along with a single view chest. COMPARISON: None. FINDINGS: Surgical changes and devices: None. Bones and chest wall: No fractures or dislocations. No suspicious bony lesions. Overlying soft tissues appear unremarkable. Lungs and pleura: No pleural effusions or pneumothorax. Lungs appear clear. Mediastinum: Mediastinal contours appear normal. Heart size is normal. IMPRESSION: No displaced rib fracture or pneumothorax. Dictated by: Dieter Valente M.D. on 10/24/2024 at 21:29 Approved by: Dieter Valente M.D. on 10/24/2024 at 21:30
== END ==
PROVIDERS: Family Provider Family Medicine; PCP Family Medicine; Referring Provider Family Medicine; Visit Provider Family Medicine
DX: S29.8XXA Other specified injuries of thorax, initial encounter (principal); X58.XXXA Exposure to other specified factors, initial encounter
CPT/HCPCS: 71101

== ENCOUNTER → 2024-11-28 14:58 | Outpatient (CLI) | payer OTHER, SELFPAY ==
[2023-09-28 10:08] VITALS: BMI 26.4
[2024-11-28 15:29] LABS: Hematocrit 37.4 % (36-46); Hemoglobin 12.8 g/dL (12.0-16.0); Mean Corpuscular HGB Conc 34.2 % (30-36); Mean Corpuscular Hemoglobin 29.3 PG (26-34); Mean Corpuscular Volume 85.7 fL (80-100); Platelet Count 259 X10^3/uL (150-400)
[2024-11-28 16:11] LABS: Alanine Aminotransferase 26 IU/L (<35); Albumin 4.2 g/dL (3.5-5.0); Albumin Globulin Ratio 1.8 (1.0-2.8); Alkaline Phosphatase 77 U/L (38-126); Blood Urea Nitrogen 14 mg/dL (7-17); Calcium 9.2 mg/dL (8.4-10.2); Carbon Dioxide 28 mmol/L (22-32); Chloride 102 mmol/L (98-107); Cholesterol 162 mg/dL (140-199); Estimated Glomerular Filt Rate > 60 mL/min (>60); Globulin 2.4 g/dL (1.7-4.1); Glucose 95 mg/dL (70-99); HDL Cholesterol 80 mg/dL (40-60); HEMOLYSIS < 15 (0-50); Lipase 10 U/L (23-300); Potassium 4.4 mmol/L (3.4-5.1); Sodium 139 mmol/L (137-145); Total Protein 6.6 g/dL (6.3-8.2); Triglycerides 101 mg/dL (35-150)
[2024-11-29 15:59] LABS: HIV 1 & 2 Ab/Ag 4th Gen Combo NEGATIVE (NEGATIVE); Hep C Virus Ab w/Reflex Quant NEGATIVE s/c (NEGATIVE)
== END ==
PROVIDERS: Family Provider Family Medicine; PCP Family Medicine; Referring Provider Family Medicine; Visit Provider Family Medicine
DX: Z72.0 Tobacco use (principal); R11.2 Nausea with vomiting, unspecified; R10.13 Epigastric pain; Z11.59 Encounter for screening for other viral diseases; Z11.4 Encounter for screening for human immunodeficiency virus [HIV]
CPT/HCPCS: 36415; 80053; 80061; 83690; 85027; 86803; 87389